=== PATIENT | male | born 1950 | race African-American/Black ===

== ENCOUNTER 2016-05-31 15:12 | Emergency (ER) | payer MEDICARE, OTHER ==
[~2016-05-31] VITALS: Ht 170.2 cm; Wt 83.9 kg
[~2016-05-31 15:12] MED LIST: AMLO10TA4 PO; LISI40TA PO; [UNRECOGNIZED DRUG - OTHER]; advair
[2016-05-31 15:47] VITALS: BP 140/76
[2016-05-31] MEDS ORDERED: CYCL10TA2 PO (16:05)
[2016-05-31] MEDS ORDERED: HYDR-971 PO (16:05)
--- NOTE | 2016-05-31 16:05 | PHYS DOC ---
Past Medical History Past Medical History: Asthma, Glaucoma, Hypertension, Hepatitis Additional Past Medical Histor: Drug use Past Surgical History: Other Additional Past Surgical Histo: thyroidectomy Alcohol Use: None Drug Use: None Adult General Chief Complaint Chief Complaint: BACK PAIN OR INJURY HPI HPI Patient is a 66 year old male with history of hypertension glaucoma and asthma who presents today with moderate left low back pain radiating into the left lower extremity was on movement that began yesterday. Patient denies any known trauma. Denies any loss of bowel bladder function. He states he has tried a 2 mg dose of a muscle relaxer he got from his PCP with no relief. Review of Systems Review of Systems Constitutional: Denies fever or chills [] Eyes: Denies change in visual acuity, redness, or eye pain [] HENT: Denies nasal congestion or sore throat [] GI: Denies abdominal pain, nausea, vomiting, bloody stools or diarrhea [] : Denies dysuria or hematuria [] Musculoskeletal: Left low back pain radiating to the left lower extremity. Neurologic: Denies headache, focal weakness or sensory changes [] Endocrine: Denies polyuria or polydipsia [] Allergies Allergies Allergies Coded Allergies Type Severity Reaction Last Updated Verified No Known Drug Allergies 03/09/13 No Physical Exam Physical Exam Constitutional: Well developed, well nourished, no acute distress, non-toxic appearance. [] HENT: Normocephalic, atraumatic, bilateral external ears normal, oropharynx moist, no oral exudates, nose normal. [] Abdomen: Bowel sounds normal, soft, no tenderness, no masses, no pulsatile masses. [] Skin: Warm, dry, no erythema, no rash. [] Back: Mild tenderness on palpation of paraspinal muscles of the left lower lumbar region worse on the left SI joint, no midline tenderness, no CVA tenderness. Positive left leg straight raises. Extremities: No tenderness, no cyanosis, no clubbing, ROM intact, no edema. [] Neurologic: Alert and oriented X 3, normal motor function, normal sensory function, no focal deficits noted. [] Psychologic: Affect normal, judgement normal, mood normal. [] Current Patient Data Vital Signs Vital Signs Date Time Temp Pulse Resp B/P Pulse Ox O2 Delivery O2 Flow Rate FiO2 05/31/16 15:47 97.4 50 16 99 Room Air 97.4 EKG EKG [] Radiology/Procedures Radiology/Procedures [] Course & Med Decision Making Course & Med Decision Making Pertinent Labs and Imaging studies reviewed. (See chart for details) Patient has pain consistent with left sciatic pain. He was discharged with some muscle relaxers and pain medicines. He was instructed to follow-up with his own PCP in the next 7 days. Heat recommended to the back or ice. He was provided return precautions and discharged in stable condition. Dragon Disclaimer Dragon Disclaimer This electronic medical record was generated, in whole or in part, using a voice recognition dictation system. Departure Departure Impression: Primary Impression: Low back pain Additional Impression: Sciatic leg pain Disposition: HOME, SELF-CARE Condition: STABLE (ERASED) Referrals: ERWIN PARRA (PCP) Follow-up with your doctor in one week Patient Instructions: Back Pain, Adult, Sciatica Additional Instructions: You were seen for sciatic back pain. You can apply heat or ice to your low back. Follow-up with your doctor in one week. Come back to the ED if you have any loss of bowel bladder function or worsening condition Scripts Cyclobenzaprine Hcl 10 Mg Tablet1 Tab PO TID #30 TAB Prov:PHAM LANE APRN 05/31/16 Hydrocodone/Apap 5-325 ([place] 5-325 Tablet)1 Each Tablet1 Tab PO Q4-6HRS #12 TAB Prov:PHAM LANE APRN 05/31/16 Problem Qualifiers Primary Impression: Low back pain Chronicity: acute Back pain laterality: left Sciatica presence: without sciatica Qualified Code: M54.5 - Low back pain PHAM LANE APRN May 31, 2016 16:05
== END 2016-05-31 16:18 | disposition home or self-care (01) ==
LOC: ER 15:12
DX: M54.42 Lumbago with sciatica, left side (principal); I10 Essential (primary) hypertension; J45.909 Unspecified asthma, uncomplicated; E89.0 Postprocedural hypothyroidism; H40.9 Unspecified glaucoma; Z86.19 Personal history of other infectious and parasitic diseases
CPT/HCPCS: 99283

== ENCOUNTER 2016-10-31 18:49 | Emergency (ER) | payer MEDICARE, OTHER ==
[~2016-10-31] VITALS: Ht 170.2 cm; Wt 83.9 kg
[~2016-10-31 18:49] MED LIST changes: +CYCL10TA2 PO; +HYDR-971 PO
[2016-10-31 19:24] LABS: BASO # 0.1 x10^3/uL (0.0-0.2); BASO % 1 % (0-3); EOS % 1 % (0-3); HEMATOCRIT 40.7 % (39.0-53.0); HEMOGLOBIN 13.2 g/dL (13.0-17.5); LYMPH # 2.9 x10^3/uL (1.0-4.8); LYMPH % 20 % (24-48); MEAN CORPUSCULAR HEMOGLOBIN 33 pg (25-35); MEAN CORPUSCULAR HGB CONC 32 g/dL (31-37); MEAN CORPUSCULAR VOLUME 103 fL (79-100); MONO % 8 % (0-9); NEUT % 70 % (31-73); PLATELET COUNT 305 x10^3/uL (140-400); RED BLOOD COUNT 3.97 x10^6/uL (4.30-5.70); RED CELL DISTRIBUTION WIDTH 12.8 % (11.5-14.5); WHITE BLOOD COUNT 14.4 x10^3/uL (4.0-11.0)
[2016-10-31] MEDS ORDERED: METOCLOPRAMIDE HCL 10 MG/2 ML VIAL. IV ONE (19:30)
[2016-10-31] MEDS ORDERED: IV NORMAL SALINE 500ML BAG 500 ML IV ONE (19:30)
[2016-10-31] MEDS ORDERED: diphenhydrAMINE 50 MG/ML VIAL IVP ONE (19:30)
[2016-10-31 19:34] LABS: GFR 90.5; POTASSIUM 4.1 mmol/L (3.5-5.1)
--- NOTE | 2016-10-31 19:55 | RAD ---
EXAM: CT HEAD WITHOUT CONTRAST. HISTORY: Headache. TECHNIQUE: Computed tomography of the head was performed without intravenous contrast. COMPARISON: None. FINDINGS: There is no intracranial hemorrhage. There is encephalomalacia along the inferior aspect of the left cerebellar hemisphere suggesting a chronic infarct. There is mild chronic microangiopathic white matter change elsewhere. The ventricles are normal in size and position. The visualized paranasal sinuses appear clear. There are changes of bilateral cataract surgery. The temporal bones are unremarkable. The calvarium reveals no suspicious lesions. There are atherosclerotic calcifications of the internal carotid and vertebral arteries. IMPRESSION: 1. No acute intracranial findings. 2. Chronic left cerebellar infarct. Mild chronic microangiopathic white matter change. *One or more of the following individualized dose reduction techniques were utilized for this examination: 1. Automated exposure control. 2. Adjustment of the mA and/or kV according to patient size. 3. Use of iterative reconstruction technique. Electronically signed by: Choco Chang MD (10/31/2016 7:52 PM) [facility]
--- NOTE | 2016-10-31 20:49 | PHYS DOC ---
Past Medical History Past Medical History: Asthma, Glaucoma, Hypertension, Hepatitis, Other Additional Past Medical Histor: Drug use, HEP C, CHRONIC BACK AND LEG PAIN Past Surgical History: Other Additional Past Surgical Histo: thyroidectomy Alcohol Use: None Drug Use: None Adult General Chief Complaint Chief Complaint: HEADACHE HPI HPI 66-year-old male presenting today to the emergency department with a headache in the frontal region that is nonradiating. It is been present since Thursday. He reports also feeling lightheaded when he stands up and dizzy. He denies neck pain or neck stiffness. He denies confusion. Duration constant. No alleviating or exacerbating factors present. Headache is not sudden in onset. Review of systems is negative for neck stiffness, meningismus, confusion cyanosis lethargy fevers chills nausea or vomiting. He denies chest pain or shortness of breath. All other review of systems is negative unless otherwise noted in history of present illness. ED course: 66-year-old male presenting to the emergency department with headache. Afebrile with a normal heart rate. Pertinent physical exam findings show normal range of motion of the neck. Negative Brudzinski sign. Negative Kernig sign. Otherwise unremarkable exam. Well-appearing individual. Labs sent which showed a mild nonspecific leukocytosis. Head CT unremarkable. Otherwise blood work unremarkable. Patient was given IV fluids Reglan and Benadryl which improved his symptoms and was subsequently discharged home. Urinalysis shows elevated specific gravity. Not suggestive of infection. On reexamination, the patient was feeling better and subsequently discharged home. The patient was then discharged home in stable condition to follow up with their primary care physician over the next 2-3 days. They were to return if their symptoms worsened or if they were concerned for any reason. [id number] discharge instructions and return precautions were given. Patient's questions were answered to their satisfaction. Patient is comfortable plan. Review of Systems Review of Systems SEE ABOVE. Current Medications Current Medications Current Medications Medications (Trade) Dose Ordered Sig/Deepak Start Time Stop Time Status Last Admin Dose Admin Diphenhydramine HCl (Benadryl) 50 mg 1X ONCE 10/31/16 19:30 10/31/16 19:31 DC 10/31/16 19:28 50 MG Metoclopramide HCl (Reglan) 20 mg 1X ONCE 10/31/16 19:30 7/28/17 19:31 DC 10/31/16 19:28 20 MG Sodium Chloride 500 ml @ 500 mls/hr 1X ONCE 10/31/16 19:30 10/31/16 20:29 DC 10/31/16 19:28 500 MLS/HR Allergies Allergies Allergies Coded Allergies Type Severity Reaction Last Updated Verified No Known Drug Allergies 03/09/13 No Physical Exam Physical Exam SEE ABOVE Constitutional: Well developed, well nourished, no acute distress, non-toxic appearance. [] HENT: Normocephalic, atraumatic, bilateral external ears normal, oropharynx moist, no oral exudates, nose normal. [] Eyes: PERRLA, EOMI, conjunctiva normal, no discharge. [] Neck: Normal range of motion, no tenderness, supple, no stridor. [] Cardiovascular:Heart rate regular rhythm, no murmur [] Lungs & Thorax: Bilateral breath sounds clear to auscultation [] Abdomen: Bowel sounds normal, soft, no tenderness, no masses, no pulsatile masses. [] Skin: Warm, dry, no erythema, no rash. [] Back: No tenderness, no CVA tenderness. [] Extremities: No tenderness, no cyanosis, no clubbing, ROM intact, no edema. [] Neurologic: Alert and oriented X 3, normal motor function, normal sensory function, no focal deficits noted. [] Psychologic: Affect normal, judgement normal, mood normal. [] Current Patient Data Vital Signs Vital Signs Date Time Temp Pulse Resp B/P (MAP) Pulse Ox O2 Delivery O2 Flow Rate FiO2 10/31/16 20:30 66 19 144/76 (98) 97 Room Air 10/31/16 19:00 98.9 98.9 Lab Values Laboratory Tests Test 10/31/16 19:07 10/31/16 20:45 White Blood Count 14.4 x10^3/uL (4.0-11.0) H Red Blood Count 3.97 x10^6/uL (4.30-5.70) L Hemoglobin 13.2 g/dL (13.0-17.5) Hematocrit 40.7 % (39.0-53.0) Mean Corpuscular Volume 103 fL (79-100) H Mean Corpuscular Hemoglobin 33 pg (25-35) Mean Corpuscular Hemoglobin Concent 32 g/dL (31-37) Red Cell Distribution Width 12.8 % (11.5-14.5) Platelet Count 305 x10^3/uL (140-400) Neutrophils (%) (Auto) 70 % (31-73) Lymphocytes (%) (Auto) 20 % (24-48) L Monocytes (%) (Auto) 8 % (0-9) Eosinophils (%) (Auto) 1 % (0-3) Basophils (%) (Auto) 1 % (0-3) Neutrophils # (Auto) 10.1 x10^3uL (1.8-7.7) H Lymphocytes # (Auto) 2.9 x10^3/uL (1.0-4.8) Monocytes # (Auto) 1.1 x10^3/uL (0.0-1.1) Eosinophils # (Auto) 0.1 x10^3/uL (0.0-0.7) Basophils # (Auto) 0.1 x10^3/uL (0.0-0.2) Sodium Level 145 mmol/L (136-145) Potassium Level 4.1 mmol/L (3.5-5.1) Chloride Level 111 mmol/L (98-107) H Carbon Dioxide Level 26 mmol/L (21-32) Anion Gap 8 (6-14) Blood Urea Nitrogen 21 mg/dL (8-26) Creatinine 1.0 mg/dL (0.7-1.3) Estimated GFR (Cockcroft-Gault) 90.5 Glucose Level 115 mg/dL (70-99) H Calcium Level 8.0 mg/dL (8.5-10.1) L Lipase 347 U/L (73-393) Urine Collection Type Unknown Urine Color Marlene Urine Clarity Clear Urine pH 5.5 Urine Specific [place] >=1.030 Urine Protein Negative mg/dL (NEG-TRACE) Urine Glucose (UA) Negative mg/dL (NEG) Urine Ketones (Stick) Trace mg/dL (NEG) Urine Blood Negative (NEG) Urine Nitrite Negative (NEG) Urine Bilirubin Small (NEG) Urine Urobilinogen Dipstick 1.0 mg/dL (0.2 mg/dL) Urine Leukocyte Esterase Trace (NEG) Urine RBC 1-2 /HPF (0-2) Urine WBC Occ /HPF (0-4) Urine Squamous Epithelial Cells Few /LPF Urine Bacteria 0 /HPF (0-FEW) Urine Mucus Marked /LPF Laboratory Tests 10/31/16 19:07 Laboratory Tests 10/31/16 19:07 EKG EKG [] Radiology/Procedures Radiology/Procedures [] Course & Med Decision Making Course & Med Decision Making Pertinent Labs and Imaging studies reviewed. (See chart for details) [] Dragon Disclaimer Dragon Disclaimer This electronic medical record was generated, in whole or in part, using a voice recognition dictation system. Departure Departure Impression: Primary Impression: Headache Additional Impression: Other complicated headache syndrome Disposition: HOME, SELF-CARE Condition: STABLE Referrals: ERWIN PARRA (PCP) Patient Instructions: General Headache Without Cause Additional Instructions: Thank you for allowing us to participate in your care today. Followup with your primary care physician in 3 days if your symptoms do not improve. Call your Primary Doctor tomorrow and inform them of your visit today. If you do not have a primary care provider you can ask for a list of our primary care providers. Return to the emergency department you have any new or concerning findings. This should be evaluated by the primary care physician and any necessary consulting services for continued management within a few days after discharge. Return to emergency room if you have any new or concerning symptoms including but not limited to fever, chills, nausea, vomiting, intractable pain, any new rashes, chest pain, shortness of air, uncontrolled bleeding, difficulty breathing, and/or vision loss. Problem Qualifiers GENOVEVA ALVAREZ MD Oct 31, 2016 20:49
[2016-10-31 21:28] LABS: BILIRUBIN,URINE SMALL (NEG); GLUCOSE,URINE NEGATIVE (NEG); NITRITE,URINE NEGATIVE (NEG); PH,URINE 5.5; PROTEIN,URINE NEGATIVE (NEG-TRACE)
[2016-10-31 21:30] VITALS: BP 133/74
[2016-10-31 21:38] LABS: BACTERIA,URINE 0 /HPF (0-FEW); SQUAMOUS EPITHELIAL CELL,UR FEW /LPF; WBC,URINE OCC /HPF (0-4)
--- NOTE | 2016-11-01 22:57 | EKG ---
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
== END 2016-10-31 21:55 | disposition home or self-care (01) ==
LOC: ER 18:49
DX: G44.59 Other complicated headache syndrome (principal); J45.909 Unspecified asthma, uncomplicated; I10 Essential (primary) hypertension; I63.9 Cerebral infarction, unspecified; B19.20 Unspecified viral hepatitis C without hepatic coma; H40.9 Unspecified glaucoma
CPT/HCPCS: 36415; 70450; 80048; 81001; 83690; 85027; 87086; 93005; 96361; 96374; 96375; 99285; J1200; J2765; J7040

== ENCOUNTER 2017-11-20 13:45 | Inpatient (IN) | payer BC, OTHER ==
[~2017-11-20] VITALS: Ht 170.2 cm; Wt 83.9 kg
[~2017-11-20 13:45] MED LIST changes: +LISI-130 PO; -LISI40TA PO
--- NOTE | 2017-11-20 14:12 | PHYS DOC ---
Past Medical History Past Medical History: Asthma, Glaucoma, Hypertension, Hepatitis, Other Additional Past Medical Histor: Drug use, HEP C, CHRONIC BACK AND LEG PAIN Past Surgical History: Other Additional Past Surgical Histo: thyroidectomy Alcohol Use: None Drug Use: None Adult General Chief Complaint Chief Complaint: CHEST PAIN HPI HPI Patient is a 67 year old male with history of hypertension, glaucoma, who presents today complaining over 10 out of 10 frontal headache that began a week ago. Patient describes the headache as throbbing. He states he was seen by the PCP on he states he was given a shot for the headache. He states it improve the symptoms but they came back again. Patient is also complaining of a sharp 6 out of 10 left-sided chest pain that began 3 days ago. Patient states the pain is worse on movement, he states the pain is relieved on resting. He states he has not tried taking anything for his pain. PCP Dr. Sousa Review of Systems Review of Systems Constitutional: Denies fever or chills [] Eyes: Denies change in visual acuity, redness, or eye pain [] HENT: Denies nasal congestion or sore throat [] Respiratory: Denies cough or shortness of breath [] Cardiovascular: Reports left-sided chest pain GI: Denies abdominal pain, nausea, vomiting, bloody stools or diarrhea [] : Denies dysuria or hematuria [] Musculoskeletal: Denies back pain or joint pain [] Integument: Denies rash or skin lesions [] Neurologic: Reports headache, denies focal weakness or sensory changes [] All other systems were reviewed and found to be within normal limits, except as documented in this note. Current Medications Current Medications Current Medications Medications (Trade) Dose Ordered Sig/Deepak Start Time Stop Time Status Last Admin Dose Admin Aspirin (Sonido Aspirin) 325 mg 1X ONCE 11/20/17 14:15 11/20/17 14:16 DC 11/20/17 15:04 325 MG Dexamethasone Sodium Phosphate (Decadron) 10 mg 1X ONCE 11/20/17 14:15 11/20/17 14:16 DC 11/20/17 15:03 10 MG Sodium Chloride 1,000 ml @ 1,000 mls/hr 1X ONCE 11/20/17 14:15 11/20/17 15:14 DC 11/20/17 15:03 1,000 MLS/HR Allergies Allergies Allergies Coded Allergies Type Severity Reaction Last Updated Verified No Known Drug Allergies 03/09/13 No Physical Exam Physical Exam Constitutional: Well developed, well nourished, no acute distress, non-toxic appearance. [] HENT: Normocephalic, atraumatic, bilateral external ears normal, oropharynx moist, no oral exudates, nose normal. [] Eyes: PERRLA, EOMI, conjunctiva normal, no discharge. [] Neck: Normal range of motion, no tenderness, supple, no stridor. [] Cardiovascular:Heart rate regular rhythm, no murmur [] Lungs & Thorax: Bilateral breath sounds clear to auscultation [] Abdomen: Bowel sounds normal, soft, no tenderness, no masses, no pulsatile masses. [] Skin: Warm, dry, no erythema, no rash. [] Back: No tenderness, no CVA tenderness. [] Extremities: No tenderness, no cyanosis, no clubbing, ROM intact, no edema. [] Neurologic: Alert and oriented X 3, normal motor function, normal sensory function, no focal deficits noted. Cranial nerves II through XII intact Psychologic: Affect normal, judgement normal, mood normal. [] Current Patient Data Vital Signs Vital Signs Date Time Temp Pulse Resp B/P (MAP) Pulse Ox O2 Delivery O2 Flow Rate FiO2 11/20/17 15:15 63 22 163/89 (113) 97 11/20/17 13:57 97.9 Room Air 97.9 Lab Values Laboratory Tests Test 11/20/17 14:00 White Blood Count 8.9 x10^3/uL (4.0-11.0) Red Blood Count 4.62 x10^6/uL (4.30-5.70) Hemoglobin 15.2 g/dL (13.0-17.5) Hematocrit 45.7 % (39.0-53.0) Mean Corpuscular Volume 99 fL (79-100) Mean Corpuscular Hemoglobin 33 pg (25-35) Mean Corpuscular Hemoglobin Concent 33 g/dL (31-37) Red Cell Distribution Width 12.4 % (11.5-14.5) Platelet Count 315 x10^3/uL (140-400) Neutrophils (%) (Auto) 53 % (31-73) Lymphocytes (%) (Auto) 35 % (24-48) Monocytes (%) (Auto) 9 % (0-9) Eosinophils (%) (Auto) 2 % (0-3) Basophils (%) (Auto) 1 % (0-3) Neutrophils # (Auto) 4.7 x10^3uL (1.8-7.7) Lymphocytes # (Auto) 3.1 x10^3/uL (1.0-4.8) Monocytes # (Auto) 0.8 x10^3/uL (0.0-1.1) Eosinophils # (Auto) 0.2 x10^3/uL (0.0-0.7) Basophils # (Auto) 0.1 x10^3/uL (0.0-0.2) Sodium Level 142 mmol/L (136-145) Potassium Level 3.5 mmol/L (3.5-5.1) Chloride Level 107 mmol/L (98-107) Carbon Dioxide Level 28 mmol/L (21-32) Anion Gap 7 (6-14) Blood Urea Nitrogen 13 mg/dL (8-26) Creatinine 1.0 mg/dL (0.7-1.3) Estimated GFR (Cockcroft-Gault) 90.2 BUN/Creatinine Ratio 13 (6-20) Glucose Level 84 mg/dL (70-99) Calcium Level 9.2 mg/dL (8.5-10.1) Magnesium Level 2.1 mg/dL (1.8-2.4) Total Bilirubin 0.6 mg/dL (0.2-1.0) Aspartate Amino Transferase (AST) 41 U/L (15-37) H Alanine Aminotransferase (ALT) 68 U/L (16-63) H Alkaline Phosphatase 117 U/L (46-116) H Creatine Kinase 82 U/L (39-308) Creatine Kinase MB (Mass) < 0.5 ng/mL (0.0-3.6) Creatine Kinase MB Relative Index % (0-4) Troponin I Quantitative < 0.017 ng/mL (0.000-0.055) RS-Skl-N-Type Natriuretic Peptide 82 pg/mL (0-124) Total Protein 8.0 g/dL (6.4-8.2) Albumin 3.8 g/dL (3.4-5.0) Albumin/Globulin Ratio 0.9 (1.0-1.7) L Thyroid Stimulating Hormone (TSH) 3.282 uIU/mL (0.358-3.74) Laboratory Tests 11/20/17 14:00 Laboratory Tests 11/20/17 14:00 EKG EKG 14:[address] Givens sinus rhythm, HR 50 no STEMI[] Radiology/Procedures Radiology/Procedures []PROCEDURE: PORTABLE CHEST 1V Exam: AP portable chest History: Chest pain, headache. Comparison: February 12, 2015. Findings: Patient is rotated. The heart and mediastinal structures are within normal limits for size. Lungs are without infiltrate. No pleural effusion or pneumothorax is identified. Impression: 1. No acute cardiopulmonary process. Electronically signed by: Aristides Srinivasan MD (11/20/2017 2:38 PM) [id number] DICTATED and SIGNED BY: ARISTIDES SRINIVASAN MD DATE: 11/20/17 8739 PROCEDURE: CT HEAD WO CONTRAST PQRS Compliance Statement: One or more of the following individualized dose reduction techniques were utilized for this examination: 1. Automated exposure control 2. Adjustment of the mA and/or kV according to patient size 3. Use of iterative reconstruction technique CT HEAD WITHOUT CONTRAST History: FRONTAL ANDERSON X 1 WEEK H/O GLAUCOMA Comparison: CT head without contrast, October 31, 2016. Procedure: Axial images are obtained of the head from the skull base through the vertex without IV contrast. Findings: The ventricles and sulci are normal for the patient's age. There is periventricular white matter hypoattenuation. This is a nonspecific finding but is commonly due to chronic small vessel ischemic disease in a patient of this age. Stable old inferior left cerebellar infarct. No mass-effect, midline shift, hemorrhage, extra-axial fluid collection, or obvious acute infarction is identified. Basilar cisterns are patent. Bone windows demonstrate no acute calvarial abnormality. Minimal mucosal thickening left maxillary sinus. Mastoid air cells are well aerated. IMPRESSION: 1. No acute intracranial abnormality. 2. Periventricular white matter chronic small vessel ischemic changes. 3. Old left cerebellar infarct. Electronically signed by: Jericho Kearns MD (11/20/2017 2:32 PM) [id number] DICTATED and SIGNED BY: JERICHO KEARNS MD DATE: 11/20/17 1424 Course & Med Decision Making Course & Med Decision Making Pertinent Labs and Imaging studies reviewed. (See chart for details) This is a 67-year-old male patient presented to the ED today with left-sided chest pain that began 3 days ago as well as a headache that began one week ago. Chest x-ray is negative for any acute findings, CT of the head is negative for any acute findings, EKG is negative, troponin is normal, CBC no acute findings, CMP with AST of 41 and ALT of 68 ALK 117, patient has no abdominal pain. Patient was given a full dose aspirin on arrival to the ED. 15:[address] Nelson who will f/u with patient 15:[address] Gonzalez who accepted patient for admission Routine consult placed for neurology Heart score 3 Dragon Disclaimer Dragon Disclaimer This electronic medical record was generated, in whole or in part, using a voice recognition dictation system. Departure Departure Impression: Primary Impression: Chest pain Additional Impression: Headache Disposition: 09 ADMITTED INPATIENT Condition: STABLE Referrals: ERWIN PARRA (PCP) Problem Qualifiers Primary Impression: Chest pain Chest pain type: unspecified Qualified Codes: R07.9 - Chest pain, unspecified Additional Impression: Headache Headache type: unspecified Headache chronicity pattern: acute headache Intractability: not intractable Qualified Codes: R51 - Headache ROGELIOPHAM VASQUEZ UPTWISTER TENDER Nov 20, 2017 14:12
[2017-11-20] MEDS ORDERED: ASPIRIN 325 MG TABLET PO ONE (14:15)
[2017-11-20] MEDS ORDERED: IV NORMAL SALINE 1000ML BAG 1,000 ML IV ONE (14:15)
[2017-11-20] MEDS ORDERED: DEXAMETHASONE SOD PHOS 20 MG/5 ML VIAL. IV ONE (14:15)
[2017-11-20 14:24] LABS: BASO # 0.1 x10^3/uL (0.0-0.2); BASO % 1 % (0-3); EOS # 0.2 x10^3/uL (0.0-0.7); EOS % 2 % (0-3); HEMATOCRIT 45.7 % (39.0-53.0); HEMOGLOBIN 15.2 g/dL (13.0-17.5); LYMPH # 3.1 x10^3/uL (1.0-4.8); LYMPH % 35 % (24-48); MEAN CORPUSCULAR HEMOGLOBIN 33 pg (25-35); MEAN CORPUSCULAR HGB CONC 33 g/dL (31-37); MEAN CORPUSCULAR VOLUME 99 fL (79-100); MONO # 0.8 x10^3/uL (0.0-1.1); MONO % 9 % (0-9); NEUT # 4.7 x10^3uL (1.8-7.7); NEUT % 53 % (31-73); PLATELET COUNT 315 x10^3/uL (140-400); RED BLOOD COUNT 4.62 x10^6/uL (4.30-5.70); RED CELL DISTRIBUTION WIDTH 12.4 % (11.5-14.5); WHITE BLOOD COUNT 8.9 x10^3/uL (4.0-11.0)
--- NOTE | 2017-11-20 14:36 | RAD ---
PQRS Compliance Statement: One or more of the following individualized dose reduction techniques were utilized for this examination: 1. Automated exposure control 2. Adjustment of the mA and/or kV according to patient size 3. Use of iterative reconstruction technique CT HEAD WITHOUT CONTRAST History: FRONTAL ANDERSON X 1 WEEK H/O GLAUCOMA Comparison: CT head without contrast, October 31, 2016. Procedure: Axial images are obtained of the head from the skull base through the vertex without IV contrast. Findings: The ventricles and sulci are normal for the patient's age. There is periventricular white matter hypoattenuation. This is a nonspecific finding but is commonly due to chronic small vessel ischemic disease in a patient of this age. Stable old inferior left cerebellar infarct. No mass-effect, midline shift, hemorrhage, extra-axial fluid collection, or obvious acute infarction is identified. Basilar cisterns are patent. Bone windows demonstrate no acute calvarial abnormality. Minimal mucosal thickening left maxillary sinus. Mastoid air cells are well aerated. IMPRESSION: 1. No acute intracranial abnormality. 2. Periventricular white matter chronic small vessel ischemic changes. 3. Old left cerebellar infarct. Electronically signed by: Jericho Kearns MD (11/20/2017 2:32 PM) [id number]
[2017-11-20 14:42] LABS: CALCIUM 9.2 mg/dL (8.5-10.1); GFR 90.2; POTASSIUM 3.5 mmol/L (3.5-5.1)
--- NOTE | 2017-11-20 14:42 | RAD ---
Exam: AP portable chest History: Chest pain, headache. Comparison: February 12, 2015. Findings: Patient is rotated. The heart and mediastinal structures are within normal limits for size. Lungs are without infiltrate. No pleural effusion or pneumothorax is identified. Impression: 1. No acute cardiopulmonary process. Electronically signed by: Aristides Gray MD (11/20/2017 2:38 PM) [place] [id number]
[2017-11-20 14:49] LABS: ALBUMIN 3.8 g/dL (3.4-5.0); ALBUMIN/GLOBULIN RATIO 0.9 (1.0-1.7); MAGNESIUM 2.1 mg/dL (1.8-2.4); TOTAL BILIRUBIN 0.6 mg/dL (0.2-1.0)
--- NOTE | 2017-11-20 14:55 | EKG ---
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
[2017-11-20 15:02] LABS: CREATINE KINASE 82 U/L (39-308)
[2017-11-20] MEDS ORDERED: ONDANSETRON PF 4 MG/2 ML VIAL. IV PRN ×2 (16:15)
[2017-11-20] MEDS ORDERED: ACETAMINOPHEN 325 MG TABLET. PO PRN (16:15)
[2017-11-20] MEDS ORDERED: NITROGLYCERIN SUBLINGUAL 0.4 MG BOTTLE OF 25. SL PRN (16:15)
[2017-11-20] MEDS ORDERED: MORPHINE SULFATE 4 MG/ML VIAL. IV PRN (16:15)
--- NOTE | 2017-11-20 16:17 | PDOC1 ---
History and Physical Date of Admission Date of Admission DATE: 11/20/17 TIME: 16:13 Identification/Chief Complaint Chief Complaint H/a and chest pain Source Source: Caregiver, Chart review, Patient History of Present Illness History of Present Illness 77-year-old -[place]er male with hypertension, claims compliance to Norvasc 10 and lisinopril at home, comes in because of headache and chest pain. Blood pressure on the high side, systolic 160s with a heart rate in the 60s. Labs look okay. EKG reassuring. Admitted for chest pain rule out along with consult to neurology because of the headaches. Sounds like he hasn't really tried ibuprofen scheduled or Tylenol. Does not have a history of migraine headaches. Labs reassuring. Past Medical History Cardiovascular: HTN Past Surgical History Past Surgical History: No pertinent history Family History Family History: Hypertension Social History Smoke: No ALCOHOL: none Drugs: Cocaine Current Problem List Problem List Problems Medical Problems: (1) Chest pain Status: Acute Current Medications Current Medications Current Medications Aspirin (Sonido Aspirin) 325 mg 1X ONCE PO Last administered on 11/20/17at 15:04 ; Start 11/20/17 at 14:15; Stop 11/20/17 at 14:16; Status DC Sodium Chloride 1,000 ml @ 1,000 mls/hr 1X ONCE IV Last administered on at 15:03; Start 11/20/17 at 14:15; Stop 11/20/17 at 15:14; Status DC Dexamethasone Sodium Phosphate (Decadron) 10 mg 1X ONCE IV Last administered on 11/20/17at 15:03; Start 11/20/17 at 14:15; Stop 11/20/17 at 14:16; Status DC Ondansetron HCl (Zofran) 4 mg PRN Q8HRS PRN IV NAUSEA/VOMITING; Start 11/20/17 at 16:15; Stop 11/21/17 at 16:14 Morphine Sulfate (Morphine Sulfate) 4 mg PRN Q2HR PRN IV PAIN; Start 11/20/17 at 16:15; Stop 11/21/17 at 16:14 Acetaminophen (Tylenol) 650 mg PRN Q4HRS PRN PO FEVER; Start 11/20/17 at 16:15 ; Stop 11/21/17 at 16:14 Nitroglycerin (Nitrostat) 0.4 mg PRN Q5MIN PRN SL CHEST PAIN; Start 11/20/17 at 16:15; Stop 11/21/17 at 16:14 Active Scripts Active Cyclobenzaprine Hcl 10 Mg Tablet 1 Tab PO TID [place] 5-325 Tablet (Acetaminophen/Hydrocodone Bitart) 1 Each Tablet 1 Tab PO Q4- 6HRS Reported [advair] [prosopt] Lisinopril 40 Mg Tablet 40 Mg PO Norvasc (Amlodipine Besylate) 10 Mg Tablet 10 Mg PO Allergies Allergies: Coded Allergies: No Known Drug Allergies (Unverified , 03/09/13) ROS Review of System Per history of present illness, the rest of ROS 14 point negative Physical Exam General: Alert, Oriented X3, Cooperative, No acute distress HEENT: Atraumatic, PERRLA, EOMI Lungs: Clear to auscultation, Normal air movement Heart: S1S2, RRR, no thrills, no gallops, no murmurs Cardiovascular: S1, S2 Abdomen: Normal bowel sounds, Soft, No tenderness, No hepatosplenomegaly, No masses Male Genitals Exam: normal genitalia, normal prostate PELVIC: Nml ext genitalia Extremities: No clubbing, No cyanosis, No edema, Normal pulses, No tenderness/ swelling Skin: No rashes, No breakdown, No significant lesion Neuro: Normal gait, Normal speech, Strength at 5/5 X4 ext, Normal tone, Sensation intact, Cranial nerves 3-12 NL, Reflexes 2+ Psych/Mental Status: Mental status NL, Mood NL Vitals Vitals Vital Signs Date Time Temp Pulse Resp B/P (MAP) Pulse Ox O2 Delivery O2 Flow Rate FiO2 11/20/17 15:15 63 22 163/89 (113) 97 11/20/17 13:57 97.9 Room Air 97.9 Labs Labs Laboratory Tests Test 11/20/17 14:00 White Blood Count 8.9 x10^3/uL (4.0-11.0) Red Blood Count 4.62 x10^6/uL (4.30-5.70) Hemoglobin 15.2 g/dL (13.0-17.5) Hematocrit 45.7 % (39.0-53.0) Mean Corpuscular Volume 99 fL (79-100) Mean Corpuscular Hemoglobin 33 pg (25-35) Mean Corpuscular Hemoglobin Concent 33 g/dL (31-37) Red Cell Distribution Width 12.4 % (11.5-14.5) Platelet Count 315 x10^3/uL (140-400) Neutrophils (%) (Auto) 53 % (31-73) Lymphocytes (%) (Auto) 35 % (24-48) Monocytes (%) (Auto) 9 % (0-9) Eosinophils (%) (Auto) 2 % (0-3) Basophils (%) (Auto) 1 % (0-3) Neutrophils # (Auto) 4.7 x10^3uL (1.8-7.7) Lymphocytes # (Auto) 3.1 x10^3/uL (1.0-4.8) Monocytes # (Auto) 0.8 x10^3/uL (0.0-1.1) Eosinophils # (Auto) 0.2 x10^3/uL (0.0-0.7) Basophils # (Auto) 0.1 x10^3/uL (0.0-0.2) Sodium Level 142 mmol/L (136-145) Potassium Level 3.5 mmol/L (3.5-5.1) Chloride Level 107 mmol/L (98-107) Carbon Dioxide Level 28 mmol/L (21-32) Anion Gap 7 (6-14) Blood Urea Nitrogen 13 mg/dL (8-26) Creatinine 1.0 mg/dL (0.7-1.3) Estimated GFR (Cockcroft-Gault) 90.2 BUN/Creatinine Ratio 13 (6-20) Glucose Level 84 mg/dL (70-99) Calcium Level 9.2 mg/dL (8.5-10.1) Magnesium Level 2.1 mg/dL (1.8-2.4) Total Bilirubin 0.6 mg/dL (0.2-1.0) Aspartate Amino Transf (AST/SGOT) 41 U/L (15-37) Alanine Aminotransferase (ALT/SGPT) 68 U/L (16-63) Alkaline Phosphatase 117 U/L (46-116) Creatine Kinase 82 U/L (39-308) Creatine Kinase MB (Mass) < 0.5 ng/mL (0.0-3.6) Creatine Kinase MB Relative Index % (0-4) Troponin I Quantitative < 0.017 ng/mL (0.000-0.055) TT-Tel-Q-Type Natriuretic Peptide 82 pg/mL (0-124) Total Protein 8.0 g/dL (6.4-8.2) Albumin 3.8 g/dL (3.4-5.0) Albumin/Globulin Ratio 0.9 (1.0-1.7) Thyroid Stimulating Hormone (TSH) 3.282 uIU/mL (0.358-3.74) Laboratory Tests Test 11/20/17 14:00 White Blood Count 8.9 x10^3/uL (4.0-11.0) Red Blood Count 4.62 x10^6/uL (4.30-5.70) Hemoglobin 15.2 g/dL (13.0-17.5) Hematocrit 45.7 % (39.0-53.0) Mean Corpuscular Volume 99 fL (79-100) Mean Corpuscular Hemoglobin 33 pg (25-35) Mean Corpuscular Hemoglobin Concent 33 g/dL (31-37) Red Cell Distribution Width 12.4 % (11.5-14.5) Platelet Count 315 x10^3/uL (140-400) Neutrophils (%) (Auto) 53 % (31-73) Lymphocytes (%) (Auto) 35 % (24-48) Monocytes (%) (Auto) 9 % (0-9) Eosinophils (%) (Auto) 2 % (0-3) Basophils (%) (Auto) 1 % (0-3) Neutrophils # (Auto) 4.7 x10^3uL (1.8-7.7) Lymphocytes # (Auto) 3.1 x10^3/uL (1.0-4.8) Monocytes # (Auto) 0.8 x10^3/uL (0.0-1.1) Eosinophils # (Auto) 0.2 x10^3/uL (0.0-0.7) Basophils # (Auto) 0.1 x10^3/uL (0.0-0.2) Sodium Level 142 mmol/L (136-145) Potassium Level 3.5 mmol/L (3.5-5.1) Chloride Level 107 mmol/L (98-107) Carbon Dioxide Level 28 mmol/L (21-32) Anion Gap 7 (6-14) Blood Urea Nitrogen 13 mg/dL (8-26) Creatinine 1.0 mg/dL (0.7-1.3) Estimated GFR (Cockcroft-Gault) 90.2 BUN/Creatinine Ratio 13 (6-20) Glucose Level 84 mg/dL (70-99) Calcium Level 9.2 mg/dL (8.5-10.1) Magnesium Level 2.1 mg/dL (1.8-2.4) Total Bilirubin 0.6 mg/dL (0.2-1.0) Aspartate Amino Transf (AST/SGOT) 41 U/L (15-37) Alanine Aminotransferase (ALT/SGPT) 68 U/L (16-63) Alkaline Phosphatase 117 U/L (46-116) Creatine Kinase 82 U/L (39-308) Creatine Kinase MB (Mass) < 0.5 ng/mL (0.0-3.6) Creatine Kinase MB Relative Index % (0-4) Troponin I Quantitative < 0.017 ng/mL (0.000-0.055) XL-Odf-J-Type Natriuretic Peptide 82 pg/mL (0-124) Total Protein 8.0 g/dL (6.4-8.2) Albumin 3.8 g/dL (3.4-5.0) Albumin/Globulin Ratio 0.9 (1.0-1.7) Thyroid Stimulating Hormone (TSH) 3.282 uIU/mL (0.358-3.74) VTE Prophylaxis Ordered VTE Prophylaxis Devices: Yes VTE Pharmacological Prophylaxi: Yes Assessment/Plan Assessment/Plan Chest pain in an adult at rest in the background of accelerated hypertension Headache in the back ground of accelerated hypertension Accelerated hypertension PLAN: Admit, consult to cards and neuro Control the BP Vasotec 1.25 IV every 6 when necessary I have reconciled home meds including lisinopril and Norvasc 10 Might need to adjust blood pressure meds if BP remaining high and is needing Vasotec almost a scheduled Trial of Celebrex scheduled for the headache Further conditions pending above Ok for DELORIS Reeves MD Nov 20, 2017 16:17
[2017-11-20 16:40] LABS: BILIRUBIN,URINE NEGATIVE (NEG); CLARITY,URINE CLEAR; COLOR,URINE YELLOW; NITRITE,URINE NEGATIVE (NEG); PROTEIN,URINE NEGATIVE (NEG-TRACE)
[2017-11-20 16:47] LABS: BARBITURATES NEG (NEG); BENZODIAZEPINES NEG (NEG); CANNABINOIDS NEG (NEG); COCAINE NEG (NEG); METHADONE NEG (NEG); OPIATES NEG (NEG); PHENCYCLIDINE NEG (NEG)
[2017-11-20 16:49] LABS: AMPHETAMINE/METHAMPHETAMINE NEG (NEG)
[2017-11-20 16:58] LABS: BACTERIA,URINE 0 /HPF (0-FEW); HYALINE CASTS, URINE FEW /HPF; RBC,URINE 0 /HPF (0-2); SQUAMOUS EPITHELIAL CELL,UR FEW /LPF; WBC,URINE 0 /HPF (0-4)
[2017-11-20] MEDS: HYDROcodone/APAP 5/325MG 1 TAB TABLET PO SCH ×2 (17:00→21:16)
[2017-11-20 17:14] VITALS: BP 167/65
[2017-11-20] MEDS ORDERED: ENALAPRILAT 1.25 MG/ML VIAL. IVP PRN (18:00)
[2017-11-20] MEDS ORDERED: ENALAPRILAT 1.25 MG/ML VIAL. IVP SCH (18:00)
[2017-11-20 19:28] VITALS: BP 167/87
[2017-11-20] MEDS: CYCLOBENZAPRINE 10 MG TABLET. PO SCH (21:16)
[2017-11-20] MEDS: CELECOXIB 100 MG CAPSULE. PO SCH (21:16)
[2017-11-20 23:34] VITALS: BP 160/91
[2017-11-21 03:59] VITALS: BP 167/95
[2017-11-21 05:26] LABS: BASO % 0 % (0-3); EOS % 0 % (0-3); HEMOGLOBIN 14.4 g/dL (13.0-17.5); LYMPH # 0.9 x10^3/uL (1.0-4.8); LYMPH % 11 % (24-48); MEAN CORPUSCULAR HEMOGLOBIN 33 pg (25-35); MEAN CORPUSCULAR HGB CONC 34 g/dL (31-37); MEAN CORPUSCULAR VOLUME 100 fL (79-100); MONO # 0.1 x10^3/uL (0.0-1.1); MONO % 1 % (0-9); NEUT # 7.4 x10^3uL (1.8-7.7); NEUT % 88 % (31-73); PLATELET COUNT 296 x10^3/uL (140-400); RED BLOOD COUNT 4.33 x10^6/uL (4.30-5.70); RED CELL DISTRIBUTION WIDTH 12.6 % (11.5-14.5); WHITE BLOOD COUNT 8.4 x10^3/uL (4.0-11.0)
[2017-11-21 06:05] LABS: CALCIUM 8.6 mg/dL (8.5-10.1); CREATININE 1.1 mg/dL (0.7-1.3); GFR 80.8; POTASSIUM 3.4 mmol/L (3.5-5.1)
[2017-11-21 07:51] VITALS: BP 157/90
[2017-11-21] MEDS ORDERED: LISINOPRIL 20 MG TABLET PO SCH (09:00)
[2017-11-21] MEDS ORDERED: amLODIPine BESYLATE 10 MG TABLET PO SCH (09:00)
[2017-11-21] MEDS: CYCLOBENZAPRINE 10 MG TABLET. PO SCH ×2 (09:17→13:49)
[2017-11-21] MEDS: CELECOXIB 100 MG CAPSULE. PO SCH (09:17)
[2017-11-21] MEDS: HYDROcodone/APAP 5/325MG 1 TAB TABLET PO SCH ×2 (09:17→13:49)
[2017-11-21 10:12] LABS: % BANDS 1 % (0-9); % LYMPHS 4 % (24-48); % SEGS 95 % (35-66)
[2017-11-21 10:20] LABS: PLT ESTIMATE ADEQUATE (ADEQUATE)
[2017-11-21 11:24] VITALS: BP 148/84
--- NOTE | 2017-11-21 11:35 | PDOC2 ---
CONSULT Date of Consult Date of Consult DATE: 11/21/17 TIME: 11:34 Reason for Consult Reason for Consult: Chest pain Referring Physician Referring Physician: Dr. Gonzalez Identification/Chief Complaint Chief Complaint Chest pain Source Source: Chart review, Patient History of Present Illness Reason for Visit: 67-year-old -[place] male with history of hypertension presented with headache and intermittent episodes of atypical, sharp retrosternal chest pain not related to exertion or food intake. He was found to have accelerated hypertension and admitted for further management. He stated that the chest pain is resolved since admission but he continues to have intermittent headaches. He claimed compliance with medications. He denied any orthopnea/PND, palpitations or syncope. Past Medical History Cardiovascular: HTN Past Surgical History Past Surgical History: No pertinent history Family History Family History: Hypertension Social History No ALCOHOL: none Drugs: Cocaine Domestic Violence: Neg Current Problem List Problem List Problems Medical Problems: (1) Chest pain Status: Acute (2) Headache Status: Acute Current Medications Current Medications Current Medications Aspirin (Sonido Aspirin) 325 mg 1X ONCE PO Last administered on 11/20/17at 15:04 ; Start 11/20/17 at 14:15; Stop 11/20/17 at 14:16; Status DC Sodium Chloride 1,000 ml @ 1,000 mls/hr 1X ONCE IV Last administered on at 15:03; Start 11/20/17 at 14:15; Stop 11/20/17 at 15:14; Status DC Dexamethasone Sodium Phosphate (Decadron) 10 mg 1X ONCE IV Last administered on 11/20/17at 15:03; Start 11/20/17 at 14:15; Stop 11/20/17 at 14:16; Status DC Ondansetron HCl (Zofran) 4 mg PRN Q8HRS PRN IV NAUSEA/VOMITING; Start 11/20/17 at 16:15; Stop 11/20/17 at 16:15; Status DC Morphine Sulfate (Morphine Sulfate) 4 mg PRN Q2HR PRN IV PAIN; Start 11/20/17 at 16:15; Stop 11/21/17 at 16:14 Acetaminophen (Tylenol) 650 mg PRN Q4HRS PRN PO FEVER; Start 11/20/17 at 16:15 ; Stop 11/21/17 at 16:14 Nitroglycerin (Nitrostat) 0.4 mg PRN Q5MIN PRN SL CHEST PAIN; Start 11/20/17 at 16:15; Stop 11/21/17 at 16:14 Ondansetron HCl (Zofran) 4 mg PRN Q6HRS PRN IV NAUSEA/VOMITING; Start 11/20/17 at 16:15 Enalaprilat (Vasotec Inj) 1.25 mg Q6HRS IVP ; Start 11/20/17 at 18:00; Stop at 18:00; Status DC Celecoxib (CeleBREX) 100 mg BID PO Last administered on 11/21/17at 09:17; Start 11/20/17 at 21:00 Amlodipine Besylate (Norvasc) 10 mg DAILY PO Last administered on 11/21/17at 09: 17; Start 11/21/17 at 09:00 Cyclobenzaprine HCl (Flexeril) 10 mg TID PO Last administered on 11/21/17at 09: 17; Start 11/20/17 at 21:00 Acetaminophen/ Hydrocodone Bitart ([place] 5/325) 1 tab QID PO Last administered on 11/21/17at 09:17; Start 11/20/17 at 17:00 Lisinopril (Prinivil) 40 mg DAILY PO Last administered on 11/21/17at 09:16; Start 11/21/17 at 09:00 Enalaprilat (Vasotec Inj) 1.25 mg PRN Q6HRS PRN IVP 160/100; Start 11/20/17 at 18:00 Active Scripts Active Cyclobenzaprine Hcl 10 Mg Tablet 1 Tab PO TID [place] 5-325 Tablet (Acetaminophen/Hydrocodone Bitart) 1 Each Tablet 1 Tab PO Q4- 6HRS Reported [advair] [prosopt] Lisinopril 40 Mg Tablet 40 Mg PO Norvasc (Amlodipine Besylate) 10 Mg Tablet 10 Mg PO Allergies Allergies: Coded Allergies: No Known Drug Allergies (Unverified , 03/09/13) ROS PSYCHOLOGICAL ROS: No: Hallucinations Eyes: No Blurry vision, No Loss of vision HEENT: No: Epistaxis Respiratory: No: Hemoptysis, Shortness of breath Gastrointestinal: No Vomiting Genitourinary: No Hematuria Neurological: Yes Headaches; No Seizures Skin: No Rash Physical Exam General: Alert, Oriented X3 HEENT: Atraumatic, PERRLA Lungs: Clear to auscultation Heart: Regular rate Abdomen: Soft Extremities: No edema Psych/Mental Status: Mood NL Vitals VITALS Vital Signs Date Time Temp Pulse Resp B/P (MAP) Pulse Ox O2 Delivery O2 Flow Rate FiO2 11/21/17 11:24 97.7 69 18 148/84 (105) 98 Room Air 97.7 Labs Labs Laboratory Tests Test 11/20/17 14:00 11/20/17 16:15 11/20/17 17:30 11/20/17 22:30 White Blood Count 8.9 x10^3/uL (4.0-11.0) Red Blood Count 4.62 x10^6/uL (4.30-5.70) Hemoglobin 15.2 g/dL (13.0-17.5) Hematocrit 45.7 % (39.0-53.0) Mean Corpuscular Volume 99 fL (79-100) Mean Corpuscular Hemoglobin 33 pg (25-35) Mean Corpuscular Hemoglobin Concent 33 g/dL (31-37) Red Cell Distribution Width 12.4 % (11.5-14.5) Platelet Count 315 x10^3/uL (140-400) Neutrophils (%) (Auto) 53 % (31-73) Lymphocytes (%) (Auto) 35 % (24-48) Monocytes (%) (Auto) 9 % (0-9) Eosinophils (%) (Auto) 2 % (0-3) Basophils (%) (Auto) 1 % (0-3) Neutrophils # (Auto) 4.7 x10^3uL (1.8-7.7) Lymphocytes # (Auto) 3.1 x10^3/uL (1.0-4.8) Monocytes # (Auto) 0.8 x10^3/uL (0.0-1.1) Eosinophils # (Auto) 0.2 x10^3/uL (0.0-0.7) Basophils # (Auto) 0.1 x10^3/uL (0.0-0.2) Sodium Level 142 mmol/L (136-145) Potassium Level 3.5 mmol/L (3.5-5.1) Chloride Level 107 mmol/L (98-107) Carbon Dioxide Level 28 mmol/L (21-32) Anion Gap 7 (6-14) Blood Urea Nitrogen 13 mg/dL (8-26) Creatinine 1.0 mg/dL (0.7-1.3) Estimated GFR (Cockcroft-Gault) 90.2 BUN/Creatinine Ratio 13 (6-20) Glucose Level 84 mg/dL (70-99) Calcium Level 9.2 mg/dL (8.5-10.1) Magnesium Level 2.1 mg/dL (1.8-2.4) Total Bilirubin 0.6 mg/dL (0.2-1.0) Aspartate Amino Transf (AST/SGOT) 41 U/L (15-37) Alanine Aminotransferase (ALT/SGPT) 68 U/L (16-63) Alkaline Phosphatase 117 U/L (46-116) Creatine Kinase 82 U/L (39-308) Creatine Kinase MB (Mass) < 0.5 ng/mL (0.0-3.6) Creatine Kinase MB Relative Index % (0-4) Troponin I Quantitative < 0.017 ng/mL (0.000-0.055) < 0.017 ng/mL (0.000-0.055) < 0.017 ng/mL (0.000-0.055) KV-Juv-D-Type Natriuretic Peptide 82 pg/mL (0-124) Total Protein 8.0 g/dL (6.4-8.2) Albumin 3.8 g/dL (3.4-5.0) Albumin/Globulin Ratio 0.9 (1.0-1.7) Thyroid Stimulating Hormone (TSH) 3.282 uIU/mL (0.358-3.74) Urine Collection Type Unknown Urine Color Yellow Urine Clarity Clear Urine pH 7.0 Urine Specific [place] 1.010 Urine Protein Negative mg/dL (NEG-TRACE) Urine Glucose (UA) Negative mg/dL (NEG) Urine Ketones (Stick) Negative mg/dL (NEG) Urine Blood Negative (NEG) Urine Nitrite Negative (NEG) Urine Bilirubin Negative (NEG) Urine Urobilinogen Dipstick 1.0 mg/dL (0.2 mg/dL) Urine Leukocyte Esterase Negative (NEG) Urine RBC 0 /HPF (0-2) Urine WBC 0 /HPF (0-4) Urine Squamous Epithelial Cells Few /LPF Urine Bacteria 0 /HPF (0-FEW) Urine Hyaline Casts Few /HPF Urine Mucus Mod /LPF Urine Opiates Screen Neg (NEG) Urine Methadone Screen Neg (NEG) Urine Barbiturates Neg (NEG) Urine Phencyclidine Screen Neg (NEG) Urine Amphetamine/Methamphetamine Neg (NEG) Urine Benzodiazepines Screen Neg (NEG) Urine Cocaine Screen Neg (NEG) Urine Cannabinoids Screen Neg (NEG) Urine Ethyl Alcohol Neg (NEG) Test 11/21/17 02:30 White Blood Count 8.4 x10^3/uL (4.0-11.0) Red Blood Count 4.33 x10^6/uL (4.30-5.70) Hemoglobin 14.4 g/dL (13.0-17.5) Hematocrit 43.0 % (39.0-53.0) Mean Corpuscular Volume 100 fL (79-100) Mean Corpuscular Hemoglobin 33 pg (25-35) Mean Corpuscular Hemoglobin Concent 34 g/dL (31-37) Red Cell Distribution Width 12.6 % (11.5-14.5) Platelet Count 296 x10^3/uL (140-400) Neutrophils (%) (Auto) 88 % (31-73) Lymphocytes (%) (Auto) 11 % (24-48) Monocytes (%) (Auto) 1 % (0-9) Eosinophils (%) (Auto) 0 % (0-3) Basophils (%) (Auto) 0 % (0-3) Neutrophils # (Auto) 7.4 x10^3uL (1.8-7.7) Lymphocytes # (Auto) 0.9 x10^3/uL (1.0-4.8) Monocytes # (Auto) 0.1 x10^3/uL (0.0-1.1) Eosinophils # (Auto) 0.0 x10^3/uL (0.0-0.7) Basophils # (Auto) 0.0 x10^3/uL (0.0-0.2) Segmented Neutrophils % 95 % (35-66) Band Neutrophils % 1 % (0-9) Lymphocytes % 4 % (24-48) Platelet Estimate Adequate (ADEQUATE) Sodium Level 144 mmol/L (136-145) Potassium Level 3.4 mmol/L (3.5-5.1) Chloride Level 107 mmol/L (98-107) Carbon Dioxide Level 24 mmol/L (21-32) Anion Gap 13 (6-14) Blood Urea Nitrogen 11 mg/dL (8-26) Creatinine 1.1 mg/dL (0.7-1.3) Estimated GFR (Cockcroft-Gault) 80.8 Glucose Level 150 mg/dL (70-99) Calcium Level 8.6 mg/dL (8.5-10.1) Laboratory Tests Test 11/20/17 14:00 11/20/17 16:15 11/20/17 17:30 11/20/17 22:30 White Blood Count 8.9 x10^3/uL (4.0-11.0) Red Blood Count 4.62 x10^6/uL (4.30-5.70) Hemoglobin 15.2 g/dL (13.0-17.5) Hematocrit 45.7 % (39.0-53.0) Mean Corpuscular Volume 99 fL (79-100) Mean Corpuscular Hemoglobin 33 pg (25-35) Mean Corpuscular Hemoglobin Concent 33 g/dL (31-37) Red Cell Distribution Width 12.4 % (11.5-14.5) Platelet Count 315 x10^3/uL (140-400) Neutrophils (%) (Auto) 53 % (31-73) Lymphocytes (%) (Auto) 35 % (24-48) Monocytes (%) (Auto) 9 % (0-9) Eosinophils (%) (Auto) 2 % (0-3) Basophils (%) (Auto) 1 % (0-3) Neutrophils # (Auto) 4.7 x10^3uL (1.8-7.7) Lymphocytes # (Auto) 3.1 x10^3/uL (1.0-4.8) Monocytes # (Auto) 0.8 x10^3/uL (0.0-1.1) Eosinophils # (Auto) 0.2 x10^3/uL (0.0-0.7) Basophils # (Auto) 0.1 x10^3/uL (0.0-0.2) Sodium Level 142 mmol/L (136-145) Potassium Level 3.5 mmol/L (3.5-5.1) Chloride Level 107 mmol/L (98-107) Carbon Dioxide Level 28 mmol/L (21-32) Anion Gap 7 (6-14) Blood Urea Nitrogen 13 mg/dL (8-26) Creatinine 1.0 mg/dL (0.7-1.3) Estimated GFR (Cockcroft-Gault) 90.2 BUN/Creatinine Ratio 13 (6-20) Glucose Level 84 mg/dL (70-99) Calcium Level 9.2 mg/dL (8.5-10.1) Magnesium Level 2.1 mg/dL (1.8-2.4) Total Bilirubin 0.6 mg/dL (0.2-1.0) Aspartate Amino Transf (AST/SGOT) 41 U/L (15-37) Alanine Aminotransferase (ALT/SGPT) 68 U/L (16-63) Alkaline Phosphatase 117 U/L (46-116) Creatine Kinase 82 U/L (39-308) Creatine Kinase MB (Mass) < 0.5 ng/mL (0.0-3.6) Creatine Kinase MB Relative Index % (0-4) Troponin I Quantitative < 0.017 ng/mL (0.000-0.055) < 0.017 ng/mL (0.000-0.055) < 0.017 ng/mL (0.000-0.055) OK-Ban-V-Type Natriuretic Peptide 82 pg/mL (0-124) Total Protein 8.0 g/dL (6.4-8.2) Albumin 3.8 g/dL (3.4-5.0) Albumin/Globulin Ratio 0.9 (1.0-1.7) Thyroid Stimulating Hormone (TSH) 3.282 uIU/mL (0.358-3.74) Urine Collection Type Unknown Urine Color Yellow Urine Clarity Clear Urine pH 7.0 Urine Specific [place] 1.010 Urine Protein Negative mg/dL (NEG-TRACE) Urine Glucose (UA) Negative mg/dL (NEG) Urine Ketones (Stick) Negative mg/dL (NEG) Urine Blood Negative (NEG) Urine Nitrite Negative (NEG) Urine Bilirubin Negative (NEG) Urine Urobilinogen Dipstick 1.0 mg/dL (0.2 mg/dL) Urine Leukocyte Esterase Negative (NEG) Urine RBC 0 /HPF (0-2) Urine WBC 0 /HPF (0-4) Urine Squamous Epithelial Cells Few /LPF Urine Bacteria 0 /HPF (0-FEW) Urine Hyaline Casts Few /HPF Urine Mucus Mod /LPF Urine Opiates Screen Neg (NEG) Urine Methadone Screen Neg (NEG) Urine Barbiturates Neg (NEG) Urine Phencyclidine Screen Neg (NEG) Urine Amphetamine/Methamphetamine Neg (NEG) Urine Benzodiazepines Screen Neg (NEG) Urine Cocaine Screen Neg (NEG) Urine Cannabinoids Screen Neg (NEG) Urine Ethyl Alcohol Neg (NEG) Test 11/21/17 02:30 White Blood Count 8.4 x10^3/uL (4.0-11.0) Red Blood Count 4.33 x10^6/uL (4.30-5.70) Hemoglobin 14.4 g/dL (13.0-17.5) Hematocrit 43.0 % (39.0-53.0) Mean Corpuscular Volume 100 fL (79-100) Mean Corpuscular Hemoglobin 33 pg (25-35) Mean Corpuscular Hemoglobin Concent 34 g/dL (31-37) Red Cell Distribution Width 12.6 % (11.5-14.5) Platelet Count 296 x10^3/uL (140-400) Neutrophils (%) (Auto) 88 % (31-73) Lymphocytes (%) (Auto) 11 % (24-48) Monocytes (%) (Auto) 1 % (0-9) Eosinophils (%) (Auto) 0 % (0-3) Basophils (%) (Auto) 0 % (0-3) Neutrophils # (Auto) 7.4 x10^3uL (1.8-7.7) Lymphocytes # (Auto) 0.9 x10^3/uL (1.0-4.8) Monocytes # (Auto) 0.1 x10^3/uL (0.0-1.1) Eosinophils # (Auto) 0.0 x10^3/uL (0.0-0.7) Basophils # (Auto) 0.0 x10^3/uL (0.0-0.2) Segmented Neutrophils % 95 % (35-66) Band Neutrophils % 1 % (0-9) Lymphocytes % 4 % (24-48) Platelet Estimate Adequate (ADEQUATE) Sodium Level 144 mmol/L (136-145) Potassium Level 3.4 mmol/L (3.5-5.1) Chloride Level 107 mmol/L (98-107) Carbon Dioxide Level 24 mmol/L (21-32) Anion Gap 13 (6-14) Blood Urea Nitrogen 11 mg/dL (8-26) Creatinine 1.1 mg/dL (0.7-1.3) Estimated GFR (Cockcroft-Gault) 80.8 Glucose Level 150 mg/dL (70-99) Calcium Level 8.6 mg/dL (8.5-10.1) Assessment/Plan Assessment/Plan 1. Chest pain with atypical features. Myocardial infarction ruled out. Plan for 2-D echo and Lexiscan nuclear stress test as an outpatient. Follow up with our office in 2-4 weeks. 2. Accelerated hypertension: Blood pressure better controlled since admission. Continue current medical regimen. 3. Headaches: Neurology consulted Thank you for your consultation KENNETH REHMAN MD Nov 21, 2017 11:35
[2017-11-21] MEDS ORDERED: TOPIRAMATE 25 MG TABLET. PO SCH (13:00)
[2017-11-21] MEDS ORDERED: METOPROLOL TART IMMED RELEASE 25 MG TABLET. PO SCH (13:00)
--- NOTE | 2017-11-21 13:33 | PDOC ---
PROGRESS NOTES Chief Complaint Chief Complaint Chest pain in an adult at rest in the background of accelerated hypertension Headache due to accelerated hypertension Accelerated hypertension History of Present Illness History of Present Illness feels better, enzymes are neg, had echo and MPI 5 years ago was negative , seen by CV. home today and f/u for stress test out pt with cardiology Vitals Vitals Vital Signs Date Time Temp Pulse Resp B/P (MAP) Pulse Ox O2 Delivery O2 Flow Rate FiO2 11/21/17 11:24 97.7 69 18 148/84 (105) 98 Room Air 97.7 Physical Exam General: Alert, Oriented X3, Cooperative, No acute distress Abdomen: Normal bowel sounds, Soft, No tenderness, No hepatosplenomegaly, No masses Extremities: No clubbing, No cyanosis, No edema, Normal pulses, No tenderness/ swelling Skin: No rashes, No breakdown, No significant lesion Labs LABS Laboratory Tests Test 11/20/17 14:00 11/20/17 16:15 11/20/17 17:30 11/20/17 22:30 White Blood Count 8.9 x10^3/uL (4.0-11.0) Red Blood Count 4.62 x10^6/uL (4.30-5.70) Hemoglobin 15.2 g/dL (13.0-17.5) Hematocrit 45.7 % (39.0-53.0) Mean Corpuscular Volume 99 fL (79-100) Mean Corpuscular Hemoglobin 33 pg (25-35) Mean Corpuscular Hemoglobin Concent 33 g/dL (31-37) Red Cell Distribution Width 12.4 % (11.5-14.5) Platelet Count 315 x10^3/uL (140-400) Neutrophils (%) (Auto) 53 % (31-73) Lymphocytes (%) (Auto) 35 % (24-48) Monocytes (%) (Auto) 9 % (0-9) Eosinophils (%) (Auto) 2 % (0-3) Basophils (%) (Auto) 1 % (0-3) Neutrophils # (Auto) 4.7 x10^3uL (1.8-7.7) Lymphocytes # (Auto) 3.1 x10^3/uL (1.0-4.8) Monocytes # (Auto) 0.8 x10^3/uL (0.0-1.1) Eosinophils # (Auto) 0.2 x10^3/uL (0.0-0.7) Basophils # (Auto) 0.1 x10^3/uL (0.0-0.2) Sodium Level 142 mmol/L (136-145) Potassium Level 3.5 mmol/L (3.5-5.1) Chloride Level 107 mmol/L (98-107) Carbon Dioxide Level 28 mmol/L (21-32) Anion Gap 7 (6-14) Blood Urea Nitrogen 13 mg/dL (8-26) Creatinine 1.0 mg/dL (0.7-1.3) Estimated GFR (Cockcroft-Gault) 90.2 BUN/Creatinine Ratio 13 (6-20) Glucose Level 84 mg/dL (70-99) Calcium Level 9.2 mg/dL (8.5-10.1) Magnesium Level 2.1 mg/dL (1.8-2.4) Total Bilirubin 0.6 mg/dL (0.2-1.0) Aspartate Amino Transf (AST/SGOT) 41 U/L (15-37) Alanine Aminotransferase (ALT/SGPT) 68 U/L (16-63) Alkaline Phosphatase 117 U/L (46-116) Creatine Kinase 82 U/L (39-308) Creatine Kinase MB (Mass) < 0.5 ng/mL (0.0-3.6) Creatine Kinase MB Relative Index % (0-4) Troponin I Quantitative < 0.017 ng/mL (0.000-0.055) < 0.017 ng/mL (0.000-0.055) < 0.017 ng/mL (0.000-0.055) RS-Tyi-C-Type Natriuretic Peptide 82 pg/mL (0-124) Total Protein 8.0 g/dL (6.4-8.2) Albumin 3.8 g/dL (3.4-5.0) Albumin/Globulin Ratio 0.9 (1.0-1.7) Thyroid Stimulating Hormone (TSH) 3.282 uIU/mL (0.358-3.74) Urine Collection Type Unknown Urine Color Yellow Urine Clarity Clear Urine pH 7.0 Urine Specific [place] 1.010 Urine Protein Negative mg/dL (NEG-TRACE) Urine Glucose (UA) Negative mg/dL (NEG) Urine Ketones (Stick) Negative mg/dL (NEG) Urine Blood Negative (NEG) Urine Nitrite Negative (NEG) Urine Bilirubin Negative (NEG) Urine Urobilinogen Dipstick 1.0 mg/dL (0.2 mg/dL) Urine Leukocyte Esterase Negative (NEG) Urine RBC 0 /HPF (0-2) Urine WBC 0 /HPF (0-4) Urine Squamous Epithelial Cells Few /LPF Urine Bacteria 0 /HPF (0-FEW) Urine Hyaline Casts Few /HPF Urine Mucus Mod /LPF Urine Opiates Screen Neg (NEG) Urine Methadone Screen Neg (NEG) Urine Barbiturates Neg (NEG) Urine Phencyclidine Screen Neg (NEG) Urine Amphetamine/Methamphetamine Neg (NEG) Urine Benzodiazepines Screen Neg (NEG) Urine Cocaine Screen Neg (NEG) Urine Cannabinoids Screen Neg (NEG) Urine Ethyl Alcohol Neg (NEG) Test 11/21/17 02:30 White Blood Count 8.4 x10^3/uL (4.0-11.0) Red Blood Count 4.33 x10^6/uL (4.30-5.70) Hemoglobin 14.4 g/dL (13.0-17.5) Hematocrit 43.0 % (39.0-53.0) Mean Corpuscular Volume 100 fL (79-100) Mean Corpuscular Hemoglobin 33 pg (25-35) Mean Corpuscular Hemoglobin Concent 34 g/dL (31-37) Red Cell Distribution Width 12.6 % (11.5-14.5) Platelet Count 296 x10^3/uL (140-400) Neutrophils (%) (Auto) 88 % (31-73) Lymphocytes (%) (Auto) 11 % (24-48) Monocytes (%) (Auto) 1 % (0-9) Eosinophils (%) (Auto) 0 % (0-3) Basophils (%) (Auto) 0 % (0-3) Neutrophils # (Auto) 7.4 x10^3uL (1.8-7.7) Lymphocytes # (Auto) 0.9 x10^3/uL (1.0-4.8) Monocytes # (Auto) 0.1 x10^3/uL (0.0-1.1) Eosinophils # (Auto) 0.0 x10^3/uL (0.0-0.7) Basophils # (Auto) 0.0 x10^3/uL (0.0-0.2) Segmented Neutrophils % 95 % (35-66) Band Neutrophils % 1 % (0-9) Lymphocytes % 4 % (24-48) Platelet Estimate Adequate (ADEQUATE) Sodium Level 144 mmol/L (136-145) Potassium Level 3.4 mmol/L (3.5-5.1) Chloride Level 107 mmol/L (98-107) Carbon Dioxide Level 24 mmol/L (21-32) Anion Gap 13 (6-14) Blood Urea Nitrogen 11 mg/dL (8-26) Creatinine 1.1 mg/dL (0.7-1.3) Estimated GFR (Cockcroft-Gault) 80.8 Glucose Level 150 mg/dL (70-99) Calcium Level 8.6 mg/dL (8.5-10.1) Assessment and Plan Assessmemt and Plan Problems Medical Problems: (1) Chest pain Status: Acute (2) Headache Status: Acute Comment Review of Relevant I have reviewed the following items barbara (where applicable) has been applied. Labs Laboratory Tests Test 11/20/17 14:00 11/20/17 16:15 11/20/17 17:30 11/20/17 22:30 White Blood Count 8.9 x10^3/uL (4.0-11.0) Red Blood Count 4.62 x10^6/uL (4.30-5.70) Hemoglobin 15.2 g/dL (13.0-17.5) Hematocrit 45.7 % (39.0-53.0) Mean Corpuscular Volume 99 fL (79-100) Mean Corpuscular Hemoglobin 33 pg (25-35) Mean Corpuscular Hemoglobin Concent 33 g/dL (31-37) Red Cell Distribution Width 12.4 % (11.5-14.5) Platelet Count 315 x10^3/uL (140-400) Neutrophils (%) (Auto) 53 % (31-73) Lymphocytes (%) (Auto) 35 % (24-48) Monocytes (%) (Auto) 9 % (0-9) Eosinophils (%) (Auto) 2 % (0-3) Basophils (%) (Auto) 1 % (0-3) Neutrophils # (Auto) 4.7 x10^3uL (1.8-7.7) Lymphocytes # (Auto) 3.1 x10^3/uL (1.0-4.8) Monocytes # (Auto) 0.8 x10^3/uL (0.0-1.1) Eosinophils # (Auto) 0.2 x10^3/uL (0.0-0.7) Basophils # (Auto) 0.1 x10^3/uL (0.0-0.2) Sodium Level 142 mmol/L (136-145) Potassium Level 3.5 mmol/L (3.5-5.1) Chloride Level 107 mmol/L (98-107) Carbon Dioxide Level 28 mmol/L (21-32) Anion Gap 7 (6-14) Blood Urea Nitrogen 13 mg/dL (8-26) Creatinine 1.0 mg/dL (0.7-1.3) Estimated GFR (Cockcroft-Gault) 90.2 BUN/Creatinine Ratio 13 (6-20) Glucose Level 84 mg/dL (70-99) Calcium Level 9.2 mg/dL (8.5-10.1) Magnesium Level 2.1 mg/dL (1.8-2.4) Total Bilirubin 0.6 mg/dL (0.2-1.0) Aspartate Amino Transf (AST/SGOT) 41 U/L (15-37) Alanine Aminotransferase (ALT/SGPT) 68 U/L (16-63) Alkaline Phosphatase 117 U/L (46-116) Creatine Kinase 82 U/L (39-308) Creatine Kinase MB (Mass) < 0.5 ng/mL (0.0-3.6) Creatine Kinase MB Relative Index % (0-4) Troponin I Quantitative < 0.017 ng/mL (0.000-0.055) < 0.017 ng/mL (0.000-0.055) < 0.017 ng/mL (0.000-0.055) XJ-Ogn-V-Type Natriuretic Peptide 82 pg/mL (0-124) Total Protein 8.0 g/dL (6.4-8.2) Albumin 3.8 g/dL (3.4-5.0) Albumin/Globulin Ratio 0.9 (1.0-1.7) Thyroid Stimulating Hormone (TSH) 3.282 uIU/mL (0.358-3.74) Urine Collection Type Unknown Urine Color Yellow Urine Clarity Clear Urine pH 7.0 Urine Specific [place] 1.010 Urine Protein Negative mg/dL (NEG-TRACE) Urine Glucose (UA) Negative mg/dL (NEG) Urine Ketones (Stick) Negative mg/dL (NEG) Urine Blood Negative (NEG) Urine Nitrite Negative (NEG) Urine Bilirubin Negative (NEG) Urine Urobilinogen Dipstick 1.0 mg/dL (0.2 mg/dL) Urine Leukocyte Esterase Negative (NEG) Urine RBC 0 /HPF (0-2) Urine WBC 0 /HPF (0-4) Urine Squamous Epithelial Cells Few /LPF Urine Bacteria 0 /HPF (0-FEW) Urine Hyaline Casts Few /HPF Urine Mucus Mod /LPF Urine Opiates Screen Neg (NEG) Urine Methadone Screen Neg (NEG) Urine Barbiturates Neg (NEG) Urine Phencyclidine Screen Neg (NEG) Urine Amphetamine/Methamphetamine Neg (NEG) Urine Benzodiazepines Screen Neg (NEG) Urine Cocaine Screen Neg (NEG) Urine Cannabinoids Screen Neg (NEG) Urine Ethyl Alcohol Neg (NEG) Test 11/21/17 02:30 White Blood Count 8.4 x10^3/uL (4.0-11.0) Red Blood Count 4.33 x10^6/uL (4.30-5.70) Hemoglobin 14.4 g/dL (13.0-17.5) Hematocrit 43.0 % (39.0-53.0) Mean Corpuscular Volume 100 fL (79-100) Mean Corpuscular Hemoglobin 33 pg (25-35) Mean Corpuscular Hemoglobin Concent 34 g/dL (31-37) Red Cell Distribution Width 12.6 % (11.5-14.5) Platelet Count 296 x10^3/uL (140-400) Neutrophils (%) (Auto) 88 % (31-73) Lymphocytes (%) (Auto) 11 % (24-48) Monocytes (%) (Auto) 1 % (0-9) Eosinophils (%) (Auto) 0 % (0-3) Basophils (%) (Auto) 0 % (0-3) Neutrophils # (Auto) 7.4 x10^3uL (1.8-7.7) Lymphocytes # (Auto) 0.9 x10^3/uL (1.0-4.8) Monocytes # (Auto) 0.1 x10^3/uL (0.0-1.1) Eosinophils # (Auto) 0.0 x10^3/uL (0.0-0.7) Basophils # (Auto) 0.0 x10^3/uL (0.0-0.2) Segmented Neutrophils % 95 % (35-66) Band Neutrophils % 1 % (0-9) Lymphocytes % 4 % (24-48) Platelet Estimate Adequate (ADEQUATE) Sodium Level 144 mmol/L (136-145) Potassium Level 3.4 mmol/L (3.5-5.1) Chloride Level 107 mmol/L (98-107) Carbon Dioxide Level 24 mmol/L (21-32) Anion Gap 13 (6-14) Blood Urea Nitrogen 11 mg/dL (8-26) Creatinine 1.1 mg/dL (0.7-1.3) Estimated GFR (Cockcroft-Gault) 80.8 Glucose Level 150 mg/dL (70-99) Calcium Level 8.6 mg/dL (8.5-10.1) Laboratory Tests Test 11/20/17 14:00 11/20/17 16:15 11/20/17 17:30 11/20/17 22:30 White Blood Count 8.9 x10^3/uL (4.0-11.0) Red Blood Count 4.62 x10^6/uL (4.30-5.70) Hemoglobin 15.2 g/dL (13.0-17.5) Hematocrit 45.7 % (39.0-53.0) Mean Corpuscular Volume 99 fL (79-100) Mean Corpuscular Hemoglobin 33 pg (25-35) Mean Corpuscular Hemoglobin Concent 33 g/dL (31-37) Red Cell Distribution Width 12.4 % (11.5-14.5) Platelet Count 315 x10^3/uL (140-400) Neutrophils (%) (Auto) 53 % (31-73) Lymphocytes (%) (Auto) 35 % (24-48) Monocytes (%) (Auto) 9 % (0-9) Eosinophils (%) (Auto) 2 % (0-3) Basophils (%) (Auto) 1 % (0-3) Neutrophils # (Auto) 4.7 x10^3uL (1.8-7.7) Lymphocytes # (Auto) 3.1 x10^3/uL (1.0-4.8) Monocytes # (Auto) 0.8 x10^3/uL (0.0-1.1) Eosinophils # (Auto) 0.2 x10^3/uL (0.0-0.7) Basophils # (Auto) 0.1 x10^3/uL (0.0-0.2) Sodium Level 142 mmol/L (136-145) Potassium Level 3.5 mmol/L (3.5-5.1) Chloride Level 107 mmol/L (98-107) Carbon Dioxide Level 28 mmol/L (21-32) Anion Gap 7 (6-14) Blood Urea Nitrogen 13 mg/dL (8-26) Creatinine 1.0 mg/dL (0.7-1.3) Estimated GFR (Cockcroft-Gault) 90.2 BUN/Creatinine Ratio 13 (6-20) Glucose Level 84 mg/dL (70-99) Calcium Level 9.2 mg/dL (8.5-10.1) Magnesium Level 2.1 mg/dL (1.8-2.4) Total Bilirubin 0.6 mg/dL (0.2-1.0) Aspartate Amino Transf (AST/SGOT) 41 U/L (15-37) Alanine Aminotransferase (ALT/SGPT) 68 U/L (16-63) Alkaline Phosphatase 117 U/L (46-116) Creatine Kinase 82 U/L (39-308) Creatine Kinase MB (Mass) < 0.5 ng/mL (0.0-3.6) Creatine Kinase MB Relative Index % (0-4) Troponin I Quantitative < 0.017 ng/mL (0.000-0.055) < 0.017 ng/mL (0.000-0.055) < 0.017 ng/mL (0.000-0.055) KX-Doc-T-Type Natriuretic Peptide 82 pg/mL (0-124) Total Protein 8.0 g/dL (6.4-8.2) Albumin 3.8 g/dL (3.4-5.0) Albumin/Globulin Ratio 0.9 (1.0-1.7) Thyroid Stimulating Hormone (TSH) 3.282 uIU/mL (0.358-3.74) Urine Collection Type Unknown Urine Color Yellow Urine Clarity Clear Urine pH 7.0 Urine Specific [place] 1.010 Urine Protein Negative mg/dL (NEG-TRACE) Urine Glucose (UA) Negative mg/dL (NEG) Urine Ketones (Stick) Negative mg/dL (NEG) Urine Blood Negative (NEG) Urine Nitrite Negative (NEG) Urine Bilirubin Negative (NEG) Urine Urobilinogen Dipstick 1.0 mg/dL (0.2 mg/dL) Urine Leukocyte Esterase Negative (NEG) Urine RBC 0 /HPF (0-2) Urine WBC 0 /HPF (0-4) Urine Squamous Epithelial Cells Few /LPF Urine Bacteria 0 /HPF (0-FEW) Urine Hyaline Casts Few /HPF Urine Mucus Mod /LPF Urine Opiates Screen Neg (NEG) Urine Methadone Screen Neg (NEG) Urine Barbiturates Neg (NEG) Urine Phencyclidine Screen Neg (NEG) Urine Amphetamine/Methamphetamine Neg (NEG) Urine Benzodiazepines Screen Neg (NEG) Urine Cocaine Screen Neg (NEG) Urine Cannabinoids Screen Neg (NEG) Urine Ethyl Alcohol Neg (NEG) Test 11/21/17 02:30 White Blood Count 8.4 x10^3/uL (4.0-11.0) Red Blood Count 4.33 x10^6/uL (4.30-5.70) Hemoglobin 14.4 g/dL (13.0-17.5) Hematocrit 43.0 % (39.0-53.0) Mean Corpuscular Volume 100 fL (79-100) Mean Corpuscular Hemoglobin 33 pg (25-35) Mean Corpuscular Hemoglobin Concent 34 g/dL (31-37) Red Cell Distribution Width 12.6 % (11.5-14.5) Platelet Count 296 x10^3/uL (140-400) Neutrophils (%) (Auto) 88 % (31-73) Lymphocytes (%) (Auto) 11 % (24-48) Monocytes (%) (Auto) 1 % (0-9) Eosinophils (%) (Auto) 0 % (0-3) Basophils (%) (Auto) 0 % (0-3) Neutrophils # (Auto) 7.4 x10^3uL (1.8-7.7) Lymphocytes # (Auto) 0.9 x10^3/uL (1.0-4.8) Monocytes # (Auto) 0.1 x10^3/uL (0.0-1.1) Eosinophils # (Auto) 0.0 x10^3/uL (0.0-0.7) Basophils # (Auto) 0.0 x10^3/uL (0.0-0.2) Segmented Neutrophils % 95 % (35-66) Band Neutrophils % 1 % (0-9) Lymphocytes % 4 % (24-48) Platelet Estimate Adequate (ADEQUATE) Sodium Level 144 mmol/L (136-145) Potassium Level 3.4 mmol/L (3.5-5.1) Chloride Level 107 mmol/L (98-107) Carbon Dioxide Level 24 mmol/L (21-32) Anion Gap 13 (6-14) Blood Urea Nitrogen 11 mg/dL (8-26) Creatinine 1.1 mg/dL (0.7-1.3) Estimated GFR (Cockcroft-Gault) 80.8 Glucose Level 150 mg/dL (70-99) Calcium Level 8.6 mg/dL (8.5-10.1) Medications Current Medications Aspirin (911 View Aspirin) 325 mg 1X ONCE PO Last administered on 11/20/17at 15:04 ; Start 11/20/17 at 14:15; Stop 11/20/17 at 14:16; Status DC Sodium Chloride 1,000 ml @ 1,000 mls/hr 1X ONCE IV Last administered on at 15:03; Start 11/20/17 at 14:15; Stop 11/20/17 at 15:14; Status DC Dexamethasone Sodium Phosphate (Decadron) 10 mg 1X ONCE IV Last administered on 11/20/17at 15:03; Start 11/20/17 at 14:15; Stop 11/20/17 at 14:16; Status DC Ondansetron HCl (Zofran) 4 mg PRN Q8HRS PRN IV NAUSEA/VOMITING; Start 11/20/17 at 16:15; Stop 11/20/17 at 16:15; Status DC Morphine Sulfate (Morphine Sulfate) 4 mg PRN Q2HR PRN IV PAIN; Start 11/20/17 at 16:15; Stop 11/21/17 at 16:14 Acetaminophen (Tylenol) 650 mg PRN Q4HRS PRN PO FEVER; Start 11/20/17 at 16:15 ; Stop 11/21/17 at 16:14 Nitroglycerin (Nitrostat) 0.4 mg PRN Q5MIN PRN SL CHEST PAIN; Start 11/20/17 at 16:15; Stop 11/21/17 at 16:14 Ondansetron HCl (Zofran) 4 mg PRN Q6HRS PRN IV NAUSEA/VOMITING; Start 11/20/17 at 16:15 Enalaprilat (Vasotec Inj) 1.25 mg Q6HRS IVP ; Start 11/20/17 at 18:00; Stop at 18:00; Status DC Celecoxib (CeleBREX) 100 mg BID PO Last administered on 11/21/17at 09:17; Start 11/20/17 at 21:00 Amlodipine Besylate (Norvasc) 10 mg DAILY PO Last administered on 11/21/17at 09: 17; Start 11/21/17 at 09:00 Cyclobenzaprine HCl (Flexeril) 10 mg TID PO Last administered on 11/21/17at 09: 17; Start 11/20/17 at 21:00 Acetaminophen/ Hydrocodone Bitart (Lortab 5/325) 1 tab QID PO Last administered on 11/21/17at 09:17; Start 11/20/17 at 17:00 Lisinopril (Prinivil) 40 mg DAILY PO Last administered on 11/21/17at 09:16; Start 11/21/17 at 09:00 Enalaprilat (Vasotec Inj) 1.25 mg PRN Q6HRS PRN IVP 160/100; Start 11/20/17 at 18:00 Metoprolol Tartrate (Lopressor) 25 mg DAILY PO ; Start 11/21/17 at 13:00 Topiramate (Topamax) 25 mg BID PO ; Start 11/21/17 at 13:00 Active Scripts Active Cyclobenzaprine Hcl 10 Mg Tablet 1 Tab PO TID [place] 5-325 Tablet (Acetaminophen/Hydrocodone Bitart) 1 Each Tablet 1 Tab PO Q4- 6HRS Reported [advair] [prosopt] Lisinopril 40 Mg Tablet 40 Mg PO Norvasc (Amlodipine Besylate) 10 Mg Tablet 10 Mg PO Vitals/I & O Vital Sign - Last 24 Hours 11/20/17 11/20/17 11/20/17 8/17/18 13:57 15:09 15:15 16:08 Temp 97.9 97.9 Pulse 55 60 63 66 Resp 22 20 22 16 B/P (MAP) 175/88 (117) 148/96 (113) 163/89 (113) 118/73 (88) Pulse Ox 95 98 97 97 O2 Delivery Room Air Room Air 11/20/17 11/20/17 11/20/17 11/20/17 16:09 17:14 17:35 19:28 Temp 97.5 97.9 97.5 97.9 Pulse 75 56 80 Resp 24 17 18 B/P (MAP) 138/99 (112) 167/65 (99) 167/87 (113) Pulse Ox 99 100 98 O2 Delivery Room Air Room Air Room Air Room Air 11/20/17 11/20/17 11/20/17 11/21/17 19:52 21:16 23:34 03:59 Temp 97.8 97.6 97.8 97.6 Pulse 74 69 Resp 18 18 B/P (MAP) 160/91 (114) 167/95 (119) Pulse Ox 98 98 O2 Delivery Room Air Room Air Room Air Room Air 11/21/17 11/21/17 11/21/17 11/21/17 07:51 08:00 09:16 09:17 Temp 97.9 97.9 Pulse 55 55 55 Resp 20 B/P (MAP) 157/90 (112) 157/90 157/90 Pulse Ox 99 O2 Delivery Room Air Room Air 11/21/17 11/21/17 11/21/17 09:17 10:17 11:24 Temp 97.7 97.7 Pulse 69 Resp 17 18 18 B/P (MAP) 148/84 (105) Pulse Ox 98 O2 Delivery Room Air Room Air Room Air Intake and Output 11/20/17 11/20/17 11/21/17 15:00 23:00 07:00 Intake Total 1240 ml 780 ml Balance 1240 ml 780 ml BRIAN SERVIN MD Nov 21, 2017 13:33
[2017-11-21 13:49] VITALS: BP 148/84
[2017-11-21] MEDS ORDERED: POTASSIUM CHLORIDE 20 MEQ TABLET.ER. PO ONE (14:00)
[2017-11-21] MEDS ORDERED: METO25TA4 PO (14:33)
[2017-11-21] MEDS ORDERED: NITR0.4T SL (14:33)
[2017-11-21] MEDS ORDERED: PANT40GR PO (14:33)
[2017-11-21] MEDS ORDERED: TOPI25TA52 PO (14:33)
--- NOTE | 2017-11-21 14:35 | PDOC3 ---
*Discharge Summary* Date of Admission: Nov 20, 2017 Date of Discharge: Nov 21, 2017 Admitting Diagnosis Problems Medical Problems: (1) Chest pain Status: Acute (2) Headache Status: Acute Final Diagnosis Chest pain. Headaches x 1 to 2 weeks. HTN. accelerated DM. 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 Glaucoma. Over weight. fatty liver, high LFT"S Problems Medical Problems: (1) Chest pain Status: Acute (2) Headache Status: Acute CONSULTS Neurology, Cardiology Procedures CXR, CT scan Head Brief Hospital Course Mr. Cm is a 67 old [sex] who presented with [ ] Disposition/Orders: D/C to Home Diet: 2 gr sodium, Cardiac Home Meds Active Scripts Pantoprazole Sodium (PROTONIX) 40 Mg Granpkt.dr, 40 MG PO DAILY for 30 Days, # 30 TAB 3 Refills Prov:BRIAN SERVIN MD 11/21/17 Topiramate (TOPAMAX) 25 Mg Tablet, 25 MG PO BID for 30 Days, #60 TAB Prov:BRINA SERVIN MD 11/21/17 Nitroglycerin (NITROSTAT) 0.4 Mg Tab.subl, 0.4 MG SL PRN Q5MIN PRN for CHEST PAIN for 30 Days, #90 TAB Prov:BRIAN SERVIN MD 11/21/17 Metoprolol Tartrate (METOPROLOL TARTRATE) 25 Mg Tablet, 25 MG PO BID for 30 Days , #60 TAB 4 Refills Prov:BRIAN SERVIN MD 11/21/17 Cyclobenzaprine Hcl (CYCLOBENZAPRINE HCL) 10 Mg Tablet, 1 TAB PO TID, #30 TAB Prov:PHAM LANE APRN 05/31/16 Hydrocodone/Apap 5-325 ([place] 5-325 TABLET) 1 Each Tablet, 1 TAB PO Q4-6HRS, # 12 TAB Prov:PHAM LANE APRN 05/31/16 Reported Medications [advair] No Conflict Check 03/09/13 [prosopt] No Conflict Check 03/09/13 Lisinopril (LISINOPRIL) 40 Mg Tablet, 40 MG PO 03/09/13 Amlodipine Besylate (NORVASC) 10 Mg Tablet, 10 MG PO, #2 03/09/13 Scheduled Cyclobenzaprine Hcl (Cyclobenzaprine Hcl), 1 TAB PO TID Hydrocodone/Apap 5-325 ([place] 5-325 Tablet), 1 TAB PO Q4-6HRS Metoprolol Tartrate (Metoprolol Tartrate), 25 MG PO BID Pantoprazole Sodium (Protonix), 40 MG PO DAILY Topiramate (Topamax), 25 MG PO BID Scheduled PRN Nitroglycerin (Nitrostat), 0.4 MG SL PRN Q5MIN PRN for CHEST PAIN Miscellaneous Medications Amlodipine Besylate (Norvasc), 10 MG PO, (Reported) Lisinopril (Lisinopril), 40 MG PO, (Reported) [advair], (Reported) [prosopt], (Reported) Scripts Pantoprazole Sodium (PROTONIX) 40 Mg Granpkt.dr 40 MG PO DAILY for 30 Days, #30 TAB 3 Refills Prov: BRIAN SERVIN MD 11/21/17 Topiramate (TOPAMAX) 25 Mg Tablet 25 MG PO BID for 30 Days, #60 TAB Prov: BRIAN SERVIN MD 11/21/17 Nitroglycerin (NITROSTAT) 0.4 Mg Tab.subl 0.4 MG SL PRN Q5MIN PRN for CHEST PAIN for 30 Days, #90 TAB Prov: BRIAN SERVIN MD 11/21/17 Metoprolol Tartrate (METOPROLOL TARTRATE) 25 Mg Tablet 25 MG PO BID for 30 Days, #60 TAB 4 Refills Prov: BRIAN SERVIN MD 11/21/17 FOLLOW UP APPOINTMENT: PCP 1-2 weeks, stress test with cardiology out pt, take medication Time Spent Total time spent with patient [] minutes for coordination of care, counseling, and education. BRIAN SERVIN MD Nov 21, 2017 14:35
--- NOTE | 2017-11-21 15:23 | PDOC2 ---
NEUROLOGY CONSULT Date of Admission Date of Admission DATE: 11/21/17 TIME: 15:15 Reason for Consult Reason for Consult: IMPRESSION: Chest pain. Headaches x 1 to 2 weeks. HTN. DM. 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 Glaucoma. Over weight. RECOMMENDATIONS/PLAN: BP control. Cardiology consulted. metoprolol 25 mg daily or bid. Topamax 25 mg bid. Lab: see orders. HCT: Negative. HISTORY OF THE PRESENT ILLNESS: 67-y-old AA male patient with above medical diseases developed symptoms of chest pain to come to the ER of [facility]. He stated he also had headaches for about 1 -2 weeks, but his headaches were much improved on 11/21/17. No projectile vomiting. No cranial nerve, sensory or motor deficits. Past Medical History Cardiovascular: HTN Past Surgical History No major surgery recently. Family History Hypertension Social History Smoke: No ALCOHOL: none Drugs: Cocaine ALLERGY: Reviewed. MEDICATIONS: Refer to [facility] REVIEW OF SYSTEMS: Constitutional: No malnutrition, weight loss, cachexia. Head: No traumatic brain or head injury. Skin: No edema, or rash. Ear: No infection. Eyes: No vision loss or color blindness. Nose: No bleeding or purulent discharges. Hearing: No hearing decrease. Neck: No injury. Cardiac: HTN. Pulmonary: No COPD. GI: No GI ulcer, GI bleeding, GERD. Urinary/genital: No dysuria, incontinence, urinary retention. Endocrinologic: Diabetes Mellitus. Skeletomuscular: No muscular atrophy, deformity Neurological: see HP. Psychiatric: Denies drug use/abuse. Otherwise, not -iantt review of systems. PHYSICAL EXAMINATION: General appearance is in subacute distress. HEENT: Normocephalic and nontraumatic. Eyes, nose, ears, and throat are unremarkable. Neck is supple. No lymphadenopathy. No bruits are heard over the carotid artery. No crepitus. Cardiovascular: S1, S2, regular rate and rhythm. Pulmonary: Clear to auscultation bilaterally. Abdomen: Bowel sounds are positive. Abdomen is soft, nontender, and nondistended. Extremities: No rash, lesions, or edema. No restriction of range of motion NEUROLOGICAL EXAMINATION: Alert Oriented to time, place and person. PERRL. EOMI. CN: no focal findings. Muscle tone: within normal. Muscle strength: 5 DTR: 2 Plantar reflex: Flexor response bilaterally Gait: At baseline normal. Sensory exam: no abnormal findings. No cerebellar signs elicited. F-T-N test fine. Current Medications Current Medications Current Medications Aspirin (Sonido Aspirin) 325 mg 1X ONCE PO Last administered on 11/20/17at 15:04 ; Start 11/20/17 at 14:15; Stop 11/20/17 at 14:16; Status DC Sodium Chloride 1,000 ml @ 1,000 mls/hr 1X ONCE IV Last administered on at 15:03; Start 11/20/17 at 14:15; Stop 11/20/17 at 15:14; Status DC Dexamethasone Sodium Phosphate (Decadron) 10 mg 1X ONCE IV Last administered on 11/20/17at 15:03; Start 11/20/17 at 14:15; Stop 11/20/17 at 14:16; Status DC Ondansetron HCl (Zofran) 4 mg PRN Q8HRS PRN IV NAUSEA/VOMITING; Start 11/20/17 at 16:15; Stop 11/20/17 at 16:15; Status DC Morphine Sulfate (Morphine Sulfate) 4 mg PRN Q2HR PRN IV PAIN; Start 11/20/17 at 16:15; Stop 11/21/17 at 16:14 Acetaminophen (Tylenol) 650 mg PRN Q4HRS PRN PO FEVER; Start 11/20/17 at 16:15 ; Stop 11/21/17 at 16:14 Nitroglycerin (Nitrostat) 0.4 mg PRN Q5MIN PRN SL CHEST PAIN; Start 11/20/17 at 16:15; Stop 11/21/17 at 16:14 Ondansetron HCl (Zofran) 4 mg PRN Q6HRS PRN IV NAUSEA/VOMITING; Start 11/20/17 at 16:15 Enalaprilat (Vasotec Inj) 1.25 mg Q6HRS IVP ; Start 11/20/17 at 18:00; Stop at 18:00; Status DC Celecoxib (CeleBREX) 100 mg BID PO Last administered on 11/21/17at 09:17; Start 11/20/17 at 21:00 Amlodipine Besylate (Norvasc) 10 mg DAILY PO Last administered on 11/21/17at 09: 17; Start 11/21/17 at 09:00 Cyclobenzaprine HCl (Flexeril) 10 mg TID PO Last administered on 11/21/17 13: 49; Start 11/20/17 at 21:00 Acetaminophen/ Hydrocodone Bitart (Lortab 5/325) 1 tab QID PO Last administered on 11/21/17 13:49; Start 11/20/17 at 17:00 Lisinopril (Prinivil) 40 mg DAILY PO Last administered on 11/21/17 09:16; Start 11/21/17 at 09:00 Enalaprilat (Vasotec Inj) 1.25 mg PRN Q6HRS PRN IVP 160/100; Start 11/20/17 at 18:00 Metoprolol Tartrate (Lopressor) 25 mg DAILY PO Last administered on 11/21/17 13:49; Start 11/21/17 at 13:00 Topiramate (Topamax) 25 mg BID PO Last administered on 11/21/17 13:49; Start 11/21/17 at 13:00 Potassium Chloride (Klor-Con) 20 meq 1X ONCE PO Last administered on 13:48; Start 11/21/17 at 14:00; Stop 11/21/17 at 14:01; Status DC Active Scripts Active Protonix (Pantoprazole Sodium) 40 Mg Granpkt.dr 40 Mg PO DAILY 30 Days Topamax (Topiramate) 25 Mg Tablet 25 Mg PO BID 30 Days Nitrostat (Nitroglycerin) 0.4 Mg Tab.subl 0.4 Mg SL PRN Q5MIN PRN 30 Days Metoprolol Tartrate 25 Mg Tablet 25 Mg PO BID 30 Days Cyclobenzaprine Hcl 10 Mg Tablet 1 Tab PO TID [place] 5-325 Tablet (Acetaminophen/Hydrocodone Bitart) 1 Each Tablet 1 Tab PO Q4- 6HRS Reported [advair] [prosopt] Lisinopril 40 Mg Tablet 40 Mg PO Norvasc (Amlodipine Besylate) 10 Mg Tablet 10 Mg PO Allergies Allergies: Allergies Coded Allergies Type Severity Reaction Last Updated Verified No Known Drug Allergies 03/09/13 No ROS Review of System The patient denies any associated fevers, chills, headache, ear pain, rhinorrhea , sore throat, stiff neck, productive cough, chest pain, shortness of breath, back or flank pain, abdominal pain, nausea, vomiting, diarrhea, constipation, dysuria, rash, numbness, weakness, tingling, incontinence, difficulty ambulating, or diaphoresis. Physical Exam Physical Exam General: Well developed, well nourished, no acute distress, well appearing HEENT: Pupils equally round and reactive to light, EOMI, no discharge, normal conjunctiva Neck: Supple, no nuchal rigidity, no JVD, trachea midline, no tenderness Cardiac: RRR, no murmurs, no gallops, no rubs Chest/Lungs: CTAB, no wheeze, no rhonchi, no crackles Abdomen: soft, non-distended, no guarding, no peritoneal signs, non-tender Back: No tenderness Extremities: no edema, pulses intact, non-tender,capillary refill <3 sec bilateral upper and lower extremities, Neuro: Alert and oriented x 4, no focal deficits, normal speech Vitals Vitals: Vital Signs Date Time Temp Pulse Resp B/P (MAP) Pulse Ox O2 Delivery O2 Flow Rate FiO2 11/21/17 14:45 18 Room Air 11/21/17 13:49 69 148/84 11/21/17 11:24 97.7 98 97.7 Labs Labs Laboratory Tests Test 11/20/17 14:00 11/20/17 16:15 11/20/17 17:30 11/20/17 22:30 White Blood Count 8.9 x10^3/uL (4.0-11.0) Red Blood Count 4.62 x10^6/uL (4.30-5.70) Hemoglobin 15.2 g/dL (13.0-17.5) Hematocrit 45.7 % (39.0-53.0) Mean Corpuscular Volume 99 fL (79-100) Mean Corpuscular Hemoglobin 33 pg (25-35) Mean Corpuscular Hemoglobin Concent 33 g/dL (31-37) Red Cell Distribution Width 12.4 % (11.5-14.5) Platelet Count 315 x10^3/uL (140-400) Neutrophils (%) (Auto) 53 % (31-73) Lymphocytes (%) (Auto) 35 % (24-48) Monocytes (%) (Auto) 9 % (0-9) Eosinophils (%) (Auto) 2 % (0-3) Basophils (%) (Auto) 1 % (0-3) Neutrophils # (Auto) 4.7 x10^3uL (1.8-7.7) Lymphocytes # (Auto) 3.1 x10^3/uL (1.0-4.8) Monocytes # (Auto) 0.8 x10^3/uL (0.0-1.1) Eosinophils # (Auto) 0.2 x10^3/uL (0.0-0.7) Basophils # (Auto) 0.1 x10^3/uL (0.0-0.2) Sodium Level 142 mmol/L (136-145) Potassium Level 3.5 mmol/L (3.5-5.1) Chloride Level 107 mmol/L (98-107) Carbon Dioxide Level 28 mmol/L (21-32) Anion Gap 7 (6-14) Blood Urea Nitrogen 13 mg/dL (8-26) Creatinine 1.0 mg/dL (0.7-1.3) Estimated GFR (Cockcroft-Gault) 90.2 BUN/Creatinine Ratio 13 (6-20) Glucose Level 84 mg/dL (70-99) Calcium Level 9.2 mg/dL (8.5-10.1) Magnesium Level 2.1 mg/dL (1.8-2.4) Total Bilirubin 0.6 mg/dL (0.2-1.0) Aspartate Amino Transf (AST/SGOT) 41 U/L (15-37) Alanine Aminotransferase (ALT/SGPT) 68 U/L (16-63) Alkaline Phosphatase 117 U/L (46-116) Creatine Kinase 82 U/L (39-308) Creatine Kinase MB (Mass) < 0.5 ng/mL (0.0-3.6) Creatine Kinase MB Relative Index % (0-4) Troponin I Quantitative < 0.017 ng/mL (0.000-0.055) < 0.017 ng/mL (0.000-0.055) < 0.017 ng/mL (0.000-0.055) YX-Dye-J-Type Natriuretic Peptide 82 pg/mL (0-124) Total Protein 8.0 g/dL (6.4-8.2) Albumin 3.8 g/dL (3.4-5.0) Albumin/Globulin Ratio 0.9 (1.0-1.7) Thyroid Stimulating Hormone (TSH) 3.282 uIU/mL (0.358-3.74) Urine Collection Type Unknown Urine Color Yellow Urine Clarity Clear Urine pH 7.0 Urine Specific [place] 1.010 Urine Protein Negative mg/dL (NEG-TRACE) Urine Glucose (UA) Negative mg/dL (NEG) Urine Ketones (Stick) Negative mg/dL (NEG) Urine Blood Negative (NEG) Urine Nitrite Negative (NEG) Urine Bilirubin Negative (NEG) Urine Urobilinogen Dipstick 1.0 mg/dL (0.2 mg/dL) Urine Leukocyte Esterase Negative (NEG) Urine RBC 0 /HPF (0-2) Urine WBC 0 /HPF (0-4) Urine Squamous Epithelial Cells Few /LPF Urine Bacteria 0 /HPF (0-FEW) Urine Hyaline Casts Few /HPF Urine Mucus Mod /LPF Urine Opiates Screen Neg (NEG) Urine Methadone Screen Neg (NEG) Urine Barbiturates Neg (NEG) Urine Phencyclidine Screen Neg (NEG) Urine Amphetamine/Methamphetamine Neg (NEG) Urine Benzodiazepines Screen Neg (NEG) Urine Cocaine Screen Neg (NEG) Urine Cannabinoids Screen Neg (NEG) Urine Ethyl Alcohol Neg (NEG) Test 11/21/17 02:30 White Blood Count 8.4 x10^3/uL (4.0-11.0) Red Blood Count 4.33 x10^6/uL (4.30-5.70) Hemoglobin 14.4 g/dL (13.0-17.5) Hematocrit 43.0 % (39.0-53.0) Mean Corpuscular Volume 100 fL (79-100) Mean Corpuscular Hemoglobin 33 pg (25-35) Mean Corpuscular Hemoglobin Concent 34 g/dL (31-37) Red Cell Distribution Width 12.6 % (11.5-14.5) Platelet Count 296 x10^3/uL (140-400) Neutrophils (%) (Auto) 88 % (31-73) Lymphocytes (%) (Auto) 11 % (24-48) Monocytes (%) (Auto) 1 % (0-9) Eosinophils (%) (Auto) 0 % (0-3) Basophils (%) (Auto) 0 % (0-3) Neutrophils # (Auto) 7.4 x10^3uL (1.8-7.7) Lymphocytes # (Auto) 0.9 x10^3/uL (1.0-4.8) Monocytes # (Auto) 0.1 x10^3/uL (0.0-1.1) Eosinophils # (Auto) 0.0 x10^3/uL (0.0-0.7) Basophils # (Auto) 0.0 x10^3/uL (0.0-0.2) Segmented Neutrophils % 95 % (35-66) Band Neutrophils % 1 % (0-9) Lymphocytes % 4 % (24-48) Platelet Estimate Adequate (ADEQUATE) Sodium Level 144 mmol/L (136-145) Potassium Level 3.4 mmol/L (3.5-5.1) Chloride Level 107 mmol/L (98-107) Carbon Dioxide Level 24 mmol/L (21-32) Anion Gap 13 (6-14) Blood Urea Nitrogen 11 mg/dL (8-26) Creatinine 1.1 mg/dL (0.7-1.3) Estimated GFR (Cockcroft-Gault) 80.8 Glucose Level 150 mg/dL (70-99) Calcium Level 8.6 mg/dL (8.5-10.1) Laboratory Tests Test 11/20/17 16:15 11/20/17 17:30 11/20/17 22:30 11/21/17 02:30 Urine Collection Type Unknown Urine Color Yellow Urine Clarity Clear Urine pH 7.0 Urine Specific [place] 1.010 Urine Protein Negative mg/dL (NEG-TRACE) Urine Glucose (UA) Negative mg/dL (NEG) Urine Ketones (Stick) Negative mg/dL (NEG) Urine Blood Negative (NEG) Urine Nitrite Negative (NEG) Urine Bilirubin Negative (NEG) Urine Urobilinogen Dipstick 1.0 mg/dL (0.2 mg/dL) Urine Leukocyte Esterase Negative (NEG) Urine RBC 0 /HPF (0-2) Urine WBC 0 /HPF (0-4) Urine Squamous Epithelial Cells Few /LPF Urine Bacteria 0 /HPF (0-FEW) Urine Hyaline Casts Few /HPF Urine Mucus Mod /LPF Urine Opiates Screen Neg (NEG) Urine Methadone Screen Neg (NEG) Urine Barbiturates Neg (NEG) Urine Phencyclidine Screen Neg (NEG) Urine Amphetamine/Methamphetamine Neg (NEG) Urine Benzodiazepines Screen Neg (NEG) Urine Cocaine Screen Neg (NEG) Urine Cannabinoids Screen Neg (NEG) Urine Ethyl Alcohol Neg (NEG) Troponin I Quantitative < 0.017 ng/mL (0.000-0.055) < 0.017 ng/mL (0.000-0.055) White Blood Count 8.4 x10^3/uL (4.0-11.0) Red Blood Count 4.33 x10^6/uL (4.30-5.70) Hemoglobin 14.4 g/dL (13.0-17.5) Hematocrit 43.0 % (39.0-53.0) Mean Corpuscular Volume 100 fL (79-100) Mean Corpuscular Hemoglobin 33 pg (25-35) Mean Corpuscular Hemoglobin Concent 34 g/dL (31-37) Red Cell Distribution Width 12.6 % (11.5-14.5) Platelet Count 296 x10^3/uL (140-400) Neutrophils (%) (Auto) 88 % (31-73) Lymphocytes (%) (Auto) 11 % (24-48) Monocytes (%) (Auto) 1 % (0-9) Eosinophils (%) (Auto) 0 % (0-3) Basophils (%) (Auto) 0 % (0-3) Neutrophils # (Auto) 7.4 x10^3uL (1.8-7.7) Lymphocytes # (Auto) 0.9 x10^3/uL (1.0-4.8) Monocytes # (Auto) 0.1 x10^3/uL (0.0-1.1) Eosinophils # (Auto) 0.0 x10^3/uL (0.0-0.7) Basophils # (Auto) 0.0 x10^3/uL (0.0-0.2) Segmented Neutrophils % 95 % (35-66) Band Neutrophils % 1 % (0-9) Lymphocytes % 4 % (24-48) Platelet Estimate Adequate (ADEQUATE) Sodium Level 144 mmol/L (136-145) Potassium Level 3.4 mmol/L (3.5-5.1) Chloride Level 107 mmol/L (98-107) Carbon Dioxide Level 24 mmol/L (21-32) Anion Gap 13 (6-14) Blood Urea Nitrogen 11 mg/dL (8-26) Creatinine 1.1 mg/dL (0.7-1.3) Estimated GFR (Cockcroft-Gault) 80.8 Glucose Level 150 mg/dL (70-99) Calcium Level 8.6 mg/dL (8.5-10.1) KOJO BUTLER MD Nov 21, 2017 15:23
== END 2017-11-21 16:41 | disposition home or self-care (01) | DRG 392 ==
LOC: ER 13:45 → 6 SOUTH 15:19
PROVIDERS: ADMIT Internal Medicine; ATTEND Internal Medicine
DX: K21.9 Gastro-esophageal reflux disease without esophagitis (principal); R07.89 Other chest pain; J45.909 Unspecified asthma, uncomplicated; I10 Essential (primary) hypertension; H40.9 Unspecified glaucoma; M54.9 Dorsalgia, unspecified; G89.29 Other chronic pain; M79.606 Pain in leg, unspecified; E89.0 Postprocedural hypothyroidism; E11.9 Type 2 diabetes mellitus without complications; E66.3 Overweight; Z68.29 Body mass index [BMI] 29.0-29.9, adult; K76.0 Fatty (change of) liver, not elsewhere classified; Z82.49 Family history of ischemic heart disease and other diseases of the circulatory system; Z86.73 Personal history of transient ischemic attack (TIA), and cerebral infarction without residual deficits; Z79.899 Other long term (current) drug therapy
CPT/HCPCS: 36415; 70450; 71045; 80048; 80053; 80307; 81001; 82553; 83735; 83880; 84443; 84484; 85007; 85025; 93005; 96361; 96374; J1100; J7030; 99285-25; G0479